=== PATIENT | female | born 2000 | race African-American/Black ===

== ENCOUNTER 2022-07-12 15:17 | Emergency (ER) | payer MEDICAID, SELFPAY ==
--- NOTE | ~2022-07-12 | CT_ITS ---
EXAMINATION: CT HEAD WITHOUT CONTRAST CLINICAL INFORMATION: Multiple syncopal episodes. Headache. COMPARISON: None TECHNIQUE: Contiguous axial imaging was performed from the skull base to vertex without intravenous administration of contrast. This CT examination was performed using dose optimization techniques as appropriate, variously including the following: *Automated exposure control *Adjustment of mA and/or kV according to patient size (this includes techniques or standardized protocols for targeted exams where dose is matched to indication/reason for exam; i.e. extremities or head) *Use of iterative reconstruction technique DLP: 1937 mGy-cm FINDINGS: There is no evidence of acute intracranial hemorrhage or territorial infarction. No abnormal mass effect or midline shift is seen. Mack to white matter differentiation is well preserved. No extra-axial fluid collections are identified. No hydrocephalus. No significant volume loss. There is no abnormal attenuation within the brain parenchyma. No acute osseous or soft tissue abnormality. The mastoid air cells and visualized portions of the paranasal sinuses are well aerated. CT/CT head/brain wo IV con IMPRESSION: No acute intracranial pathology.
--- NOTE | ~2022-07-12 | CT_ITS ---
EXAMINATION: CT ABDOMEN AND PELVIS WITHOUT CONTRAST CLINICAL INFORMATION: Right flank pain COMPARISON: None TECHNIQUE: Multidetector volumetric imaging was performed from the superior aspect of the liver through the pubic symphysis. Sagittal and coronal reformatted images were obtained on the technologist's workstation. This CT examination was performed using dose optimization techniques as appropriate, variously including the following: *Automated exposure control *Adjustment of mA and/or kV according to patient size (this includes techniques or standardized protocols for targeted exams where dose is matched to indication/reason for exam; i.e. extremities or head) *Use of iterative reconstruction technique DLP: 1937 mGy-cm FINDINGS: LUNG BASES: The visualized lung bases are unremarkable. LIVER, GALLBLADDER, AND BILIARY TREE: Liver normal in size, contour and morphology. Diffuse hepatic steatosis. No focal liver lesions. No biliary dilatation. Gallbladder unremarkable. PANCREAS: Unremarkable. SPLEEN: Unremarkable. ADRENAL GLANDS: Unremarkable. KIDNEYS AND URETERS: The kidneys are normal in size, shape, and attenuation. No hydronephrosis, hydroureter, or calculi seen. No perinephric stranding. BLADDER: Unremarkable. GASTROINTESTINAL TRACT: The small and large bowel are unremarkable. The appendix is unremarkable. ABDOMINAL WALL: No significant hernia is appreciated. LYMPH NODES: Normal. VASCULAR: Unremarkable. PELVIC VISCERA: Uterus and ovaries unremarkable. OSSEOUS STRUCTURES: No acute or suspicious osseous abnormalities CT/CT abdomen pelvis wo IV con IMPRESSION: No acute findings within the abdomen or pelvis to explain the patient's symptomatology. Mild hepatic steatosis.
[2022-07-12 16:38] LABS: MANUAL DIFF FLAG NO
[2022-07-12 16:50] LABS: Basophils Percent Auto 0.2 % (0-2); Eosinophils Percent Auto 0.2 % (0-4); Hematocrit 42.9 % (37.0-47.0); Hemoglobin 14.3 g/dl (12.0-16.0); Imm Gran Abs Auto 0.01 X10*3/uL (0.00-0.03); Imm Gran Pct Auto 0.1 % (0.0-0.4); Lymphocytes Absolute Auto 2.5 X10*3/uL (1.2-4.9); Lymphocytes Percent Auto 30.2 % (20-40); Mean Corpuscular HGB Conc 33.3 g/dl (31.0-35.0); Mean Corpuscular Hemoglobin 28.8 pg (27.0-33.0); Mean Corpuscular Volume 86.3 fL (80.0-98.0); Mean Platelet Volume 10.7 fL (9.4-12.3); Monocytes Absolute Auto 0.8 X10*3/uL (0.1-1.2); Monocytes Percent Auto 9.2 % (2-11); Neutrophils Absolute Auto 4.9 x10*3/uL (2.0-8.3); Neutrophils Percent Auto 60.1 % (45-73); Platelet Count 326 X10*3/uL (160-400); Red Blood Count 4.97 X10*6/uL (4.20-5.50); Red Cell Distribution Width 13.4 % (11.0-16.0); White Blood Count 8.1 X10*3/uL (4.8-10.8)
[2022-07-12 17:16] LABS: COVID-19 Test Negative (Negative); IDNOW Serial# 16C4AD1C
[2022-07-12 17:17] LABS: Alanine Aminotransferase 11 U/L (0-31); Albumin Level 4.3 g/dL (3.5-5.0); Alkaline Phosphatase 63 U/L (39-117); Anion Gap 16 (12-20); Aspartate Amino Transferase 12 U/L (5-31); Bilirubin Total 0.8 mg/dL (0.0-1.0); Blood Urea Nitrogen 5 mg/dL (9-16); Calcium 9.2 mg/dL (8.4-10.2); Carbon Dioxide 23 mmol/L (22-29); Chloride 104 mmol/L (96-108); Estimated Glomerular Filt Rate > 60; Glucose Random 96 mg/dL (60-115); Magnesium 2.2 mg/dL (1.6-2.6); Potassium 4.1 mmol/L (3.3-5.1); Sodium 139 mmol/L (135-145); Total Protein 7.9 g/dL (6.5-8.0)
[2022-07-12 17:35] VITALS: BP 166/84; PULSE 75; RESP 18; TEMP 36.8; O2SAT 99; BMI 48.6
[2022-07-12] MEDS: Ondansetron ODT 4 MG TAB.RAPDIS TRANSLINGU (17:44)
[2022-07-12 17:47] LABS: Glucose, Whole Blood 96 mg/dL (60-115)
--- NOTE | 2022-07-12 18:07 | PC.NURSE ---
pt pulled bathroom cord w her family in bathroom. pt family sts pt keeps passing out she feels so sick! pt able to move over to wheelchair w minimal assistance. keeps dropping head backwards and closing eyes. mlp in bathroom for interaction.
--- NOTE | 2022-07-12 18:32 | PC.NURSE ---
pt family continually alerting staff to pt keeps passing out! her lips are purple and she cant feel her arms or legs! . pt responding to painful stimuli to r thumb, immediately responsive and moving arms. pt family also sts pt is having seizure activity. pt is showing no signs of any type of seizure, pt is alert and appropriately responding to verbal questions. pt continues to keep passing out and immediately being woken up by painful stimuli during interaction. pt is able to sit up in wheelchair on own. given verbal reassurance by this rn
[2022-07-12 23:03] LABS: Lipase 15 U/L (8-78)
[2022-07-12 23:09] LABS: HCG Quantitative < 2 mIU/mL
--- NOTE | 2022-07-12 23:09 | ED_ITS ---
HPI - Abdominal Pain General Chief Complaint: Abdominal Pain Stated Complaint: right sided abd pain Time Seen by Provider: 07/12/22 16:25 Source: patient Mode of arrival: ambulatory Limitations: no limitations History of Present Illness HPI narrative: 22-year-old female presents with 4 days of right-sided abdominal pain with nausea, vomiting, dizziness, loss of balance, poor p.o. intake, and multiple episodes of syncope. Patient states that she did have some alcohol on Tuesday night, which she feels is the cause of the nausea and vomiting. She states that she has had diaphoresis, chills, and severe abdominal pain that she feels caused her syncopal episodes. She did report some diarrhea over the past few days, in which she took Imodium to alleviate her symptoms. She does not report a bowel movement today. MD elicited complaint: abdominal pain Onset (ago): day(s) (4) Pain Consistency: intermittent Location: diffuse, RLQ and R flank Severity: severe Pain scale (0-10): 10 Quality: aching and burning Exacerbating factors: vomiting and movement Relieving factors: nothing Context: other (Alcohol use) Associated symptoms: nausea, vomiting, diarrhea, chills and anorexia Treatments prior to arrival: NSAIDs Related Data Allergies Allergy/AdvReac Type Severity Reaction Status Date / Time Unable to Assess Allergy Verified 07/12/22 16:25 Review of Systems Review of Systems Constitutional: No Fever, positive Chills ENT/Mouth: No Ear Pain, No Hoarseness, No sore throat Eyes: No Eye Pain, No Swelling, No Redness, No Foreign Body Cardiovascular: No Chest Pain, No SOB Respiratory: No Cough, No Dyspnea Gastrointestinal: Phos Nausea, positive Vomiting, positive Diarrhea, positive abdominal Pain Genitourinary: No Dysuria, No Hematuria Musculoskeletal: No joint pain, No Myalgias, No Joint Swelling Skin: No Skin lacerations, No rash Neuro: No Weakness, No Numbness, No Paresthesias, No Loss of Consciousness, positive Dizziness, pot Headache Psych: No Anxiety/Panic, No Depression Heme/Lymph: no easy bruising, no Lymphadenopathy Endocrine: No Polyuria, No Polydipsia Yes all other systems are reviewed and are negative PMFSH Past Medical History Attestation statement: The following information was validated with the patient. Source: old records reviewed Social History Social History Advance Directives: No Physical Exam ED Vital Signs: Vital Signs - 24 hr 07/12/22 17:35 07/13/22 00:05 Temperature 98.3 F 99.9 F Pulse Rate 75 68 Respiratory Rate 18 18 Blood Pressure 166/84 H 139/62 Pulse Oximetry 99 97 Oxygen Delivery Method Room Air Room Air BMI result Body Mass Index 48.6 Appearance: Alert. Oriented X3. No acute distress. Eyes: Pupils equal, round and reactive to light. ENT: Pharynx normal. Neck: Normal inspection. Neck supple. CVS: Normal heart rate and rhythm. Pulses normal. Respiratory: No respiratory distress. Breath sounds normal. Abdomen: Soft and severe tenderness on minimal palpation to the right lower quadrant. Skin: Skin warm and dry. Normal skin color. Normal skin turgor. Extremities: No lower extremity edema. Gait well-balanced well coordinated. Neuro: No motor deficit. No sensory deficit. Cranial nerves 2-12 intact Course Course Course Narrative: Patient is waiting room time 07 hours and 52 minutes. 22-year-old female presents for evaluation for right-sided abdominal pain that is severe, and accompanied by nausea, vomiting, dizziness, headache, diarrhea a nd chills. States that started on Tuesday after drinking a large quantity of alcohol for her. She normally does not drink alcohol, she prefers marijuana, but was celebrating a birthday. Patient started vomiting Tuesday evening after drinking, and vomiting and abdominal pain has persisted for the past few days. Patient did have episodes of diarrhea, which was alleviated by Imodium. She denies chest pain pressure, palpitations, shortness breath, shortness of breath on exertion. She has been taking ibuprofen and Tylenol with poor effect. Patient's physical exam is positive for Valentine's and McBurney's, patient is afebrile, appears nontoxic, even unlabored respirations, and speaking in compl ete sentences. Will order CT scan of abdomen pelvis to rule out acute abdomen. Lung sounds are clear to auscultation all lobes, maintaining O2 saturation at 99-100%, with even unlabored respirations, low likelihood of aspiration at this time. CT scan abdomen pelvis indicates hepatic steatosis, no indication of appendicitis, kidney stones, pyelonephritis, acute abdomen. I did discuss alcohol intake, and that this is possibly gastritis and that she should take [id number] Maalox. CT scan of head is negative for acute findings, patient did report headaches, multiple syncopal episodes, and loss of balance. I suggest the patient follow-up with primary care physician, patient verbalized understanding of and agrees to plan of care discharge home. Verbalized understanding of signs and symptoms indicating need for emergent intervention. MDM - Abdominal Pain Differential Diagnosis Differential diagnosis: Likely abdominal pain, acute appendicitis, calculus of kidney, constipation, diverticulitis, gastroenteritis, gastritis and pancreatitis Lab Data Attestation: I reviewed the patient's lab results. Result diagrams: 07/12/22 16:31 07/12/22 16:31 Labs: Lab Results 07/12/22 07/12/22 07/12/22 Range/Units 16:31 16:31 16:31 WBC 8.1 (4.8-10.8) X10*3/uL RBC 4.97 (4.20-5.50) X10*6/uL Hgb 14.3 (12.0-16.0) g/dl Hct 42.9 (37.0-47.0) % MCV 86.3 (80.0-98.0) fL MCH 28.8 (27.0-33.0) pg MCHC 33.3 (31.0-35.0) g/dl RDW 13.4 (11.0-16.0) % Plt Count 326 (160-400) X10*3/uL MPV 10.7 (9.4-12.3) fL Immature Gran % (Auto) 0.1 (0.0-0.4) % Neut % (Auto) 60.1 (45-73) % Lymph % (Auto) 30.2 (20-40) % [place] % (Auto) 9.2 (2-11) % Eos % (Auto) 0.2 (0-4) % Baso % (Auto) 0.2 (0-2) % Lymph # (Auto) 2.5 (1.2-4.9) X10*3/uL [place] # (Auto) 0.8 (0.1-1.2) X10*3/uL Eos # (Auto) 0.0 (0.0-0.4) X10*3/uL Baso # (Auto) 0.0 (0.0-0.2) X10*3/uL Abs Immat Gran (auto) 0.01 (0.00-0.03) X10*3/uL Absolute Neuts (auto) 4.9 (2.0-8.3) x10*3/uL Absolute Nucleated RBC 0.000 (0.0-0.012) X10*3/uL Nucleated RBC % (auto) 0.0 (0.0-0.2) /100WBC Sodium 139 (135-145) mmol/L Potassium 4.1 (3.3-5.1) mmol/L Chloride 104 (96-108) mmol/L Carbon Dioxide 23 (22-29) mmol/L Anion Gap 16 (12-20) BUN 5 L (9-16) mg/dL Creatinine 0.77 (0.5-1.4) mg/dL Estim Creat Clear Calc TNP Estimated GFR > 60 POC Glucose (60-115) mg/dL Random Glucose 96 (60-115) mg/dL Calcium 9.2 (8.4-10.2) mg/dL Magnesium 2.2 (1.6-2.6) mg/dL Total Bilirubin 0.8 (0.0-1.0) mg/dL AST 12 (5-31) U/L ALT 11 (0-31) U/L Alkaline Phosphatase 63 (39-117) U/L Total Protein 7.9 (6.5-8.0) g/dL Albumin 4.3 (3.5-5.0) g/dL Lipase 15 (8-78) U/L Beta HCG, Quant < 2 mIU/mL COVID-19 (RYAN) Negative (Negative) COVID-19 Clin Com See Note 07/12/22 Range/Units 17:42 WBC (4.8-10.8) X10*3/uL RBC (4.20-5.50) X10*6/uL Hgb (12.0-16.0) g/dl Hct (37.0-47.0) % MCV (80.0-98.0) fL MCH (27.0-33.0) pg MCHC (31.0-35.0) g/dl RDW (11.0-16.0) % Plt Count (160-400) X10*3/uL MPV (9.4-12.3) fL Immature Gran % (Auto) (0.0-0.4) % Neut % (Auto) (45-73) % Lymph % (Auto) (20-40) % [place] % (Auto) (2-11) % Eos % (Auto) (0-4) % Baso % (Auto) (0-2) % Lymph # (Auto) (1.2-4.9) X10*3/uL [place] # (Auto) (0.1-1.2) X10*3/uL Eos # (Auto) (0.0-0.4) X10*3/uL Baso # (Auto) (0.0-0.2) X10*3/uL Abs Immat Gran (auto) (0.00-0.03) X10*3/uL Absolute Neuts (auto) (2.0-8.3) x10*3/uL Absolute Nucleated RBC (0.0-0.012) X10*3/uL Nucleated RBC % (auto) (0.0-0.2) /100WBC Sodium (135-145) mmol/L Potassium (3.3-5.1) mmol/L Chloride (96-108) mmol/L Carbon Dioxide (22-29) mmol/L Anion Gap (12-20) BUN (9-16) mg/dL Creatinine (0.5-1.4) mg/dL Estim Creat Clear Calc Estimated GFR POC Glucose 96 (60-115) mg/dL Random Glucose (60-115) mg/dL Calcium (8.4-10.2) mg/dL Magnesium (1.6-2.6) mg/dL Total Bilirubin (0.0-1.0) mg/dL AST (5-31) U/L ALT (0-31) U/L Alkaline Phosphatase (39-117) U/L Total Protein (6.5-8.0) g/dL Albumin (3.5-5.0) g/dL Lipase (8-78) U/L Beta HCG, Quant mIU/mL COVID-19 (RYAN) (Negative) COVID-19 Clin Com Imaging Data CT scan - abdomen: Attestation: I personally reviewed and interpreted this imaging study as follows: Radiologist's impression: FINDINGS: LUNG BASES: The visualized lung bases are unremarkable.? LIVER, GALLBLADDER, AND BILIARY TREE: Liver normal in size, contour and morphology. Diffuse hepatic steatosis. No focal liver lesions. No biliary dilatation. Gallbladder unremarkable.? PANCREAS: Unremarkable.? SPLEEN: Unremarkable.? ADRENAL GLANDS: Unremarkable.? KIDNEYS AND URETERS: The kidneys are normal in size, shape, and attenuation. No hydronephrosis, hydroureter, or calculi seen. No perinephric stranding. ? BLADDER: Unremarkable.? GASTROINTESTINAL TRACT: The small and large bowel are unremarkable. The appendix is unremarkable.? ABDOMINAL WALL: No significant hernia is appreciated.? LYMPH NODES: Normal. VASCULAR: Unremarkable. PELVIC VISCERA: Uterus and ovaries unremarkable.? OSSEOUS STRUCTURES: No acute or suspicious osseous abnormalities CT/CT abdomen pelvis wo IV con IMPRESSION: No acute findings within the abdomen or pelvis to explain the patient's symptomatology. Mild hepatic steatosis. CT scan - head: Attestation: I personally reviewed and interpreted this imaging study as follows: Radiologist's impression: FINDINGS: There is no evidence of acute intracranial hemorrhage or territorial infarction. No abnormal mass effect or midline shift is seen. Mack to white matter differentiation is well preserved. No extra-axial fluid collections are identified. No hydrocephalus. No significant volume loss. There is no abnormal attenuation within the brain parenchyma. No acute osseous or soft tissue abnormality. The mastoid air cells and visualized portions of the paranasal sinuses are well aerated. ? CT/CT head/brain wo IV con IMPRESSION: No acute intracranial pathology. Discharge Plan Discharge Clinical Impression: Abdominal pain, Gastroenteritis, Syncope Patient Disposition: Home, Self-Care Instructions: Syncope (ED), Gastroenteritis (ED), Abdominal Pain (ED) Additional Instructions: You were evaluated for abdominal pain, nausea, vomiting, and syncopal episodes. CT scan of abdomen and pelvis are negative for acute findings but indicates enlarged liver. CT scan of the head is negative. Your lab values are within normal limits. Your symptoms are consistent with gastritis or gastroenteritis. Please consider taking Maalox [id number] as directed. Drink plenty of fluids. Follow-up with primary care provider as needed. Return to the emergency department for any new, concerning, worsening symptoms. Stand Alone Forms: Work/School Release Interventions: ED Discharge Assessment Last Done: 07/13/22 01:41
[2022-07-13 00:05] VITALS: BP 139/62; PULSE 68; RESP 18; TEMP 37.7; O2SAT 97
[2022-07-13] MEDS: Morphine Sulfate 4 MG/ML CARTRIDGE IVPUSH (00:08)
[2022-07-13] MEDS: 0.9 % Sodium Chloride 1,000 ML 999 ML IVCONT (00:08)
== END 2022-07-13 01:42 | disposition home or self-care (01) ==
PROVIDERS: Physician Assistant Medical; Emergency Provider Student in an Organized Health Care Education/Training Program; PCP Family Medicine
DX: R55 Syncope and collapse (principal); K52.9 Noninfective gastroenteritis and colitis, unspecified; R10.9 Unspecified abdominal pain; Z20.822 Contact with and (suspected) exposure to COVID-19
CPT/HCPCS: 70450; 74176; 80053; 82947; 83690; 83735; 84702; 85025; 87635; 96374; 99284; J2270

== ENCOUNTER 2023-08-11 11:10 | Outpatient (REF) | payer MEDICAID, SELFPAY ==
[2023-08-11 13:05] LABS: MANUAL DIFF FLAG NO
[2023-08-11 13:10] LABS: Basophils Percent Auto 0.6 % (0-2); Eosinophils Absolute Auto 0.1 X10*3/uL (0.0-0.4); Eosinophils Percent Auto 1.7 % (0-4); Hematocrit 40.9 % (37.0-47.0); Hemoglobin 13.4 g/dl (12.0-16.0); Imm Gran Abs Auto 0.01 X10*3/uL (0.00-0.03); Imm Gran Pct Auto 0.2 % (0.0-0.4); Lymphocytes Absolute Auto 2.5 X10*3/uL (1.2-4.9); Lymphocytes Percent Auto 38.7 % (20-40); Mean Corpuscular HGB Conc 32.8 g/dl (31.0-35.0); Mean Corpuscular Hemoglobin 29.3 pg (27.0-33.0); Mean Corpuscular Volume 89.3 fL (80.0-98.0); Mean Platelet Volume 11.3 fL (9.4-12.3); Monocytes Absolute Auto 0.6 X10*3/uL (0.1-1.2); Monocytes Percent Auto 8.9 % (2-11); Neutrophils Absolute Auto 3.3 x10*3/uL (2.0-8.3); Neutrophils Percent Auto 49.9 % (45-73); Platelet Count 261 X10*3/uL (160-400); Red Blood Count 4.58 X10*6/uL (4.20-5.50); White Blood Count 6.5 X10*3/uL (4.8-10.8)
[2023-08-11 13:26] LABS: Alanine Aminotransferase 19 U/L (0-31); Albumin Level 3.6 g/dL (3.5-5.0); Alkaline Phosphatase 59 U/L (39-117); Anion Gap 10 (12-20); Aspartate Amino Transferase 17 U/L (5-31); Bilirubin Direct 0.3 mg/dL (0.0-0.5); Bilirubin Total 0.6 mg/dL (0.0-1.0); Blood Urea Nitrogen 7 mg/dL (9-16); Calcium 8.4 mg/dL (8.4-10.2); Carbon Dioxide 26 mmol/L (22-29); Chloride 106 mmol/L (96-108); Cholesterol 119 mg/dL (<200); Estimated Average Glucose 100 mg/dL; Estimated Glomerular Filt Rate > 60; Glucose Random 85 mg/dL (60-115); HDL Cholesterol 51 mg/dL (>40); Hemoglobin A1c % 5.1 % (<6.0); LDL Cholesterol Calculated 55 mg/dL (<100); Potassium 4.3 mmol/L (3.3-5.1); Sodium 138 mmol/L (135-145); Triglycerides 65 mg/dL (<150)
[2023-08-11 16:34] LABS: CT PCR NOT DETECTED (Not Detect.); NG PCR NOT DETECTED (Not Detect.)
[2023-08-12 03:51] LABS: HIV AB/AG Nonreactive (Nonreactive); HIV Num 1 0.04 S/CO (0.00-0.99); ~HepC Num1 0.06 S/CO (0.00-0.79); ~Hepatitis C Antibody Nonreactive (Nonreactive)
[2023-08-16 00:55] LABS: VITAMIN D (1,25 OH) D3 66 pg/mL; Vit D (1,25-Dihydroxy) Total 66 pg/mL (18-72); Vitamin D (1,25 OH) D2 <8 pg/mL
== END 2023-08-11 11:11 | disposition home or self-care (01) ==
LOC: HO.HHCL 11:10
PROVIDERS: Visit Provider Family Medicine
DX: Z11.4 Encounter for screening for human immunodeficiency virus [HIV] (principal); Z11.3 Encounter for screening for infections with a predominantly sexual mode of transmission; E28.2 Polycystic ovarian syndrome; E16.1 Other hypoglycemia; R10.9 Unspecified abdominal pain; E55.9 Vitamin D deficiency, unspecified
CPT/HCPCS: 0353U; 80048; 80061; 80076; 82652; 83036; 85025; 86803; 87389

== ENCOUNTER 2024-07-12 09:45 | Outpatient (RCR) | payer OTHER, SELFPAY ==
[2024-07-12 09:52] VITALS: BP 129/80; PULSE 61; TEMP 36.8
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
--- NOTE | 2024-07-12 14:57 | HO.PHP ---
Client's case has been opened and reviewed in team.
--- NOTE | 2024-07-12 18:30 | P.HPPSP_ITS ---
HPI Date of Service: 07/12/24 Chief Complaint: MDD Sources of Information: patient interviewed, chart reviewed and crisis/core team assessment reviewed HPI Narrative: Patient is a 24 yo nonbinary patient (who declined to offer any preference for pronouns) with history of depression, anxiety who was referred by [facility]. I recently had a suicide attempt... I was on the phone one night and had a bad argument with my girlfriend. I (impulsively) grabbed a knife and held it to my throat . They ultimately did relinquish the knife and reached out for help and did not harm themselves. They reports nightly cannabis use but denies any other substance use that day. They are not currently on medications and only recently started with their current therapist. Today mood is good, I was anxious this morning says they typically have more bad day than good days in any given month. Presently they report their mood is calmer. Groups have so been good I'm trying to open up Cognitive anxiety > somatic 03/26. I'm an overthinker . Sleep disruption, delayed onset. Goald for partial program: Be more productive, Be more motivated Past Psychiatric History: Denies IPLOC, PHP, withdrawal management or substance addiction treatment They report this as their first suicidal attempt and denies any history of self Denies any hx of history EDB Denies aggression, anger or issues with impulse control No hx of branden or psychosis Denies any pertinent developmental history, ADHD or LD Therapist - been working for 4 days thus day No psych proivder CURRENT MEDICATIONS: loratadine 10 mg qd albuterol inhaler [facility] Medical History (Updated 07/12/24 @ 21:28 by Trini Montano MD) PCOS (polycystic ovarian syndrome) Asthma Narrative: ASthma PCOS Eczema Weight loss (unintentional) of 13 lbs since past 6 months Denies surgical hx Denies seizures Denies concussions/TBI ALL: NKDA Social History: Unmarried, partnered Lives alone Currently unemployed, mom is a primary support Substance History: Cannabis use for many years, mostly limited to night time for sleep Alcohol use rare No illicit drug use Denies nicotine Diagnostics Vital Signs (24Hr): Vital Signs - 24 hr 07/12/24 09:52 Temperature 98.2 F Pulse Rate 61 Blood Pressure 129/80 BMI result Body Mass Index 0.5 Meds/Allergies Meds Home Medications ?Medication ?Instructions ?Recorded ?Confirmed ?Type albuterol sulfate 2.5 mg/3 mL 2.5 mg inhalation Q6H sob 07/12/24 07/12/24 History (0.083 %) solution for nebulization albuterol sulfate 90 mcg/actuation 2 puff inhalation Q4H PRN sob 07/12/24 07/12/24 History aerosol inhaler (Ventolin HFA) loratadine 10 mg capsule 10 mg PO DAILY PRN allergy sxs 07/12/24 07/12/24 History Allergies Allergies Allergy/AdvReac Type Severity Reaction Status Date / Time No Known Allergies Allergy Verified 07/12/24 09:48 Mental Status Exam Mental Status Exam Narrative: Calm, cooperative, alert, oriented. Mood anxious, depressed, affect constricted. Speech normal. No evidence of thought disorder. Thought content relevant to stressors, denies hopelessness or SI. Denies perceptual disturbance and does not appear to be internally preoccupied. Insight/judgment fair to good. Assessment & Plan Assessment & Plan (1) MDD (major depressive disorder), recurrent episode, moderate: Status: Acute Code(s): F33.1 - Major depressive disorder, recurrent, moderate (2) YONATHAN (generalized anxiety disorder): Status: Acute Code(s): F41.1 - Generalized anxiety disorder (3) Cannabis dependence with cannabis-induced disorder: Status: Acute Code(s): F12.29 - Cannabis dependence with unspecified cannabis-induced disorder (4) Acute stress reaction causing mixed disturbance of emotion and conduct: Status: Acute Code(s): F43.0 - Acute stress reaction Plan Admit to [facility] VS reviewed: darek, BP 129/80;?61 bpm start escitalpram 2.5 mg qd for 2-4 days then increase to 5 mg tablet continue other regular medications? Routine lab work ordered EKG, routine for baseline QTc for medication considerations UDS as indicated [facility] reviewed Continue to monitor as per protocol Patient educated on: diagnosis, medication risk/benefits and substance abuse Informed Consent: understands Reason for continued partial hosp. stay Substantial Risk for: inability to function, rapid decompensation and med/psych decompensation Certification I certify that partial hospital treatment is medically necessary due to the symptoms and problems resulting from the patient's mental illness and the failure to treat the patient at the partial hospital level of care would likely result in the patient requiring inpatient psychiatric care which could not be prevented at a less intensive level of care. Time Spent With Patient Time: Total time managing care of this patient today _60___ minutes.
--- NOTE | 2024-07-13 07:12 | HO.PHP ---
Martine is not scheduled today, July 13, 2024, due to having an appointment. Martine reported no safety concerns and will be in attendance to program on Tuesday.
== END 2024-07-12 23:59 | disposition home or self-care (01) ==
LOC: HO.PHPA 09:45
PROVIDERS: Visit Provider Psychiatry & Neurology Psychiatry
DX: F33.1 Major depressive disorder, recurrent, moderate (principal); F41.1 Generalized anxiety disorder; F12.29 Cannabis dependence with unspecified cannabis-induced disorder; F43.0 Acute stress reaction
CPT/HCPCS: 90791; 90853

== ENCOUNTER → 2024-07-12 09:45 | Outpatient (BNV) | payer OTHER, SELFPAY | PROVIDERS: Visit Provider Psychiatry & Neurology Psychiatry | DX: F33.1 Major depressive disorder, recurrent, moderate (principal); F12.29 Cannabis dependence with unspecified cannabis-induced disorder; F41.1 Generalized anxiety disorder; F43.0 Acute stress reaction | CPT/HCPCS: 90837 ==

== ENCOUNTER 2024-08-15 09:46 | Outpatient (REF) | payer OTHER, SELFPAY ==
[2024-08-15 12:22] LABS: Estimated Average Glucose 111 mg/dL; Hemoglobin A1c % 5.5 % (<6.0)
[2024-08-15 13:02] LABS: Alanine Aminotransferase 25 U/L (0-31); Albumin Level 3.8 g/dL (3.5-5.0); Alkaline Phosphatase 60 U/L (39-117); Anion Gap 12 (12-20); Aspartate Amino Transferase 36 U/L (5-31); Bilirubin Direct 0.2 mg/dL (0.0-0.5); Bilirubin Total 0.6 mg/dL (0.0-1.0); Blood Urea Nitrogen 14 mg/dL (9-16); Carbon Dioxide 24 mmol/L (22-29); Chloride 107 mmol/L (96-108); Cholesterol 132 mg/dL (<200); Estimated Glomerular Filt Rate > 60; Glucose Random 98 mg/dL (60-115); HDL Cholesterol 42 mg/dL (>40); LDL Cholesterol Calculated 73 mg/dL (<100); Potassium 3.9 mmol/L (3.3-5.1); Sodium 139 mmol/L (135-145); Total Protein 7.4 g/dL (6.5-8.0); Triglycerides 86 mg/dL (<150)
[2024-08-15 13:27] LABS: TSH reflex Free T4 1.15 uIU/mL (0.32-4.0)
[2024-08-15 14:32] LABS: CT PCR NOT DETECTED (Not Detect.); NG PCR NOT DETECTED (Not Detect.)
[2024-08-16 08:18] LABS: HIV AB/AG Nonreactive (Nonreactive); HIV Num 1 0.07 S/CO (0.00-0.99)
== END 2024-08-15 09:47 | disposition home or self-care (01) ==
LOC: HO.HHCL 09:46
PROVIDERS: Visit Provider Family Medicine
DX: E28.2 Polycystic ovarian syndrome (principal); Z11.3 Encounter for screening for infections with a predominantly sexual mode of transmission
CPT/HCPCS: 36415; 80048; 80061; 80076; 83036; 84443; 87389; 87491; 87591

== ENCOUNTER 2024-11-06 13:55 | Outpatient (REF) | payer OTHER, SELFPAY ==
--- OUTSIDE RECORDS SUMMARY | 2024-11-06 17:48 | XMS_ITS | Encounter Summary ---
Author Organization [employer] Address [address] [facility] 7 [place] [address] Care Team Providers Care Home Appliances Mechanic Name Role Phone Dulce Turner MD Primary Care Provider [phone]- [phone] Deirdre Mari Unavailable [phone] Reason for Visit * Reason Onset Date Comments Prior Authorization 10/22/2024 Encounter Details Date Type Department Care Team (Late st Contact Info) Description 10/22/2024 Telephone [facility] [address] [place], [place] [phone] Dulce Turner MD [address] [place], [place] [phone] Prior Authorization Social History Tobacco Use Types Packs/Day Years Used Date Smoking Tobacco: Never Passive Smoke Exposure: Never Smokeless Tobacco: Never Alcohol Use Standard Drinks/Week Comments Not Currently 0 (1 standard drink = 0.6 oz pur e alcohol) oca Depression Answer Date Recorded Patient Health Questionnaire-9 Score 12 08/22/2024 Patient Health Questionnaire-9 Score 12 08/22/2024 Last PHQ-9: Questionnaire Data Not on file 1 10/22/2023 Housing Stability Answer Date Recorded What is your housing situation today? I have fred pappas 08/02/[address] you li ve. Do you have problems with any of the following? None of the above 08/02/2024 Food Insecurity Answer Date Recorded Within the past 12 months, y ou worried that your food would run out before you got money to buy more: Never True 08/22/2024 Within the past 12 months,th e food you bought just didn't last and you didn't have enough money to get more: Never True 03/2024 Transportation Answer Date Recorded In the past 12 months, has l ack of transportation kept you from medical appts, meetings, work or from getting things needed for daily living? No 08/22/2024 Utilities Answer Date Recorded In the past 12 months, has t he electric, gas, oil or water company threatened to shut off services in your home? No 08/02/2024 Depression Answer Date Recorded Patient Health Questionnaire-2 Score 1 08/22/2024 Internet Access Answer Date Recorded Internet Access Q1 Yes 08/02/2024 Internet Access Q2 Not on file 08/02/2024 Comments Unknown Sex and Gender Information Value Date Recorded Sex Assigned at Female 08/16/2022 10:38 AM EDT Legal Sex Female 10:38 AM EDT Gender Identity Female 08/16/2022 10:38 AM EDT Sexual Orientation Lesbian or Manzano 08/16/2022 10 :38 AM EDT documented as of this encounter Miscellaneous Notes * Telephone Encounter - Michoacano Che RN - 10/25/2024 3:52 PM EST DME for Zepbound signed and faxed to [facility]. Confirmation received and sent to scan. If patient calls to check status on above, please advise them to contact [facility] at [phone]. * Telephone Encounter - Leyda Meneses - 10/23/2024 3:18 PM EST PA req form generated and sent to provider for review and signature via [employer]. * Telephone Encounter - Dulce Turner MD - 10/22/2024 10:55 AM EST Please start PA for zep bound 2.5 weekly. Infro should be in chart note from today 10/22/24. Thank you. documented in this encounter Plan of Treatment Upcoming Encounters Date Type Department Care Team (Late st Contact Info) Description 12/26/2024 11:15 AM EDT Office Visit [facility] [address] [place] [address] Dulce Turner MD [address] [place] [address] documented as of this encounter Visit Diagnoses Not on filedocumented in this encounter Additional Health Concerns Assessment Noted Time PHQ-9 Depression Total Score: 12 024 4:40 PM EST documented as of this encounter Care Teams Home Appliances Mechanic Relationship Specialty Start Date End Date Dulce Turner MD [address] [place] [address] PCP - General Family Medicine 10/29/21 Deirdre Mari [address] [facility] [address] [place] [address] Gynecology 10/08/24 documented as of this encounter
--- OUTSIDE RECORDS SUMMARY | 2024-11-06 17:48 | XMS_ITS | Encounter Summary ---
Author Organization [employer] Address 75 [facility] 7t [place] [address] Care Team Providers Care Inter Com Installer Name Role Phone Dulce Turner MD Primary Care Provider [phone]- [phone] Deirdre Mari Unavailable Encounter Details Date Type Department Care Team (Late st Contact Info) Description 04/06/2023 Orders Only [facility] [address] [place], [place] [phone] Dulce Turner MD [address] [place], [place] [phone] Social History Tobacco Use Types Packs/Day Years Used Date Smoking Tobacco: Never Passive Smoke Exposure: Never Smokeless Tobacco: Never Depression Answer Date Recorded Patient Health Questionnaire-9 Score 23 03/16/2023 Depression Answer Date Recorded Patient Health Questionnaire-2 Score 6 03/16/2023 Comments Unknown Sex and Gender Information Value Date Recorded Sex Assigned at Female 08/16/2022 10:38 AM EDT Legal Sex Female 10:38 AM EDT Gender Identity Female 08/16/2022 10:38 AM EDT Sexual Orientation Lesbian or Manzano 08/16/2022 10 :38 AM EDT COVID-19 Exposure Response Date Recorded In the last 10 days, have yo u been in contact with someone who was confirmed or suspected to have Coronavirus/COVID-19? No / Unsure 03/23/2023 8:31 AM EDT documented as of this encounter Plan of Treatment Upcoming Encounters Date Type Department Care Team (Late st Contact Info) Description 12/26/2024 11:15 AM EDT Office Visit [facility] [address] [place] [address] Dulce Turner MD [address] [place] [address] documented as of this encounter Visit Diagnoses Not on filedocumented in this encounter Additional Health Concerns Assessment Noted Time PHQ-9 Depression Total Score: 23 023 10:58 AM EDT documented as of this encounter Care Teams Inter Com Installer Relationship Specialty Start Date End Date Dulce Turner MD [address] [place] [address] PCP - General Family Medicine 10/29/21 Deirdre Mari [address] Gynecology 10/08/24 documented as of this encounter
--- OUTSIDE RECORDS SUMMARY | 2024-11-06 17:48 | XMS_ITS | Encounter Summary ---
Author Organization [email or web address] Address [address] [facility] [address] 7[address] [place] [address] Care Team Providers Care Franchise Field Consultant Name Role Phone Dulce Turner MD Primary Care Provider [phone]- [phone] Deirdre Mari Unavailable [phone] Encounter Details Date Type Department Care Team (Latest Contact Info) Description 11/06/2024 Travel Social History Tobacco Use Types Packs/Day Years [...] Description 12/26/2024 11:15 AM EDT Office Visit [facility] [address] [place] [address] Dulce Turner MD [address] [place] [address] documented as of this encounter Visit Diagnoses Not on filedocumented in this encounter Additional Health Concerns Assessment Noted Time PHQ-9 Depression Total Score: 12 024 4:40 PM EST documented as of this encounter Care Teams Franchise Field Consultant Relationship Specialty Start Date End Date Dulce Turner MD [address] [place] [address] PCP - General Family Medicine 10/29/21 Deirdre Mari [facility] [address] Gynecology 10/08/24 documented as of this encounter
--- OUTSIDE RECORDS SUMMARY | 2024-11-06 17:48 | XMS_ITS | Encounter Summary ---
Author Organization [employer] Address 75 [facility] 7 [place] [address] Care Team Providers Care Tin Flipper Name Role Phone Dulce Turner MD Primary Care Provider [phone]- [phone] Deirdre Mari Unavailable [phone] Reason for Visit * Reason Onset Date Comments Prior Authorization 11/01/2024 Zepbound Encounter Details Date Type Department Care Team (Late st Contact Info) Description 11/01/2024 Telephone [facility] [address] [place] [address] Dulce Turner MD [address] [place], [place] [phone] Prior Authorization (Zepbound) Social History Tobacco Use Types Packs/Day Years [...] encounter Miscellaneous Notes * Telephone Encounter - Leyda Meneses - 11/01/2024 3:12 PM EST PA approval received and in media. Workers Compensation Claims Analyst called [facility] and confirmed Rx was run successfully; Medication not in stock/pharmacy stated will be ordered for will be ready to forklift picker tomorrow. Writercalled pt and lvm informing of above. Pt advised to call [facility] or [facility] if any questions. documented in this encounter Plan of Treatment Upcoming Encounters Date Type Department Care Team (Late st Contact Info) Description 12/26/2024 11:15 AM EDT Office Visit [facility] [address] [place] [address] Dulce Turner MD [address] [place] [address] documented as of this encounter Visit Diagnoses Not on filedocumented in this encounter Additional Health Concerns Assessment Noted Time PHQ-9 Depression Total Score: 12 024 4:40 PM EST documented as of this encounter Care Teams Tin Flipper Relationship Specialty Start Date End Date Dulce Turner MD [address] [place] [address] PCP - General Family Medicine 10/29/21 Deirdre Mari [address] Gynecology 10/08/24 documented as of this encounter
--- OUTSIDE RECORDS SUMMARY | 2024-11-06 17:48 | XMS_ITS | Encounter Summary ---
Author Organization [employer] Address 75 [facility] 7t [place] [address] Care Team Providers Care Front Office Medical Assistant Name Role Phone Dulce Turner MD Primary Care Provider [phone]- [phone] Deirdre Mari Unavailable [phone] Encounter Details Date Type Department Care Team (Late st Contact Info) Description 10/22/2024 10:30 AM EST Office Visit [facility] [address] [place] [address] Dulce Turner MD [address] [place] [address] Other specified health status (Primary Dx); Mild persistent asthma without complication; Severe episode of recurrent major depressive disorder, without psychotic features (CMS/HCC); Morbid obesity (CMS/HCC); Dietary counseling; Exercise counseling; Class 3 severe obesity due to excess calories with serious comorbidity and body mass index (BMI) of 50.0 to 59.9 in adult (CMS/HCC); Transaminitis; Eczema, unspecified type Social History Tobacco Use Types Packs/Day Years [...] AM EDT documented as of this encounter Last Filed Vital Signs Vital Sign Reading Time Taken Comments Blood Pressure 133/80 10/22/2024 10:41 AM EST Pulse 100 10/22/2024 10:41 AM EST Temperature 36.5 ??C (97.7 ??F) 10/22/2024 10:[address] Respiratory Rate 20 10/22/2024 10:41 AM EST Oxygen Saturation 99% 10/22/2024 10:41 AM EST Inhaled Oxygen Concentration - - Weight 154 kg (339 lb) 10/22/2024 10:41 AM EST Height 167.6 cm (5' 6 ) 10/22/2024 10:41 AM EST Body Mass Index 54.72 10/22/2024 10:41 AM EST documented in this encounter Progress Notes * Dulce Turner MD - 10/22/2024 10:30 AM EST Subjective Patient ID: Mykilah M Welfare is a 24 y.o. female with PMHx of PCOS, major depressive disorder and asthma who presents for a Follow Up. Pt has not started on Tirzepatide because she wasn't sure if it had gone through the insurance. Spoke with pharmacy today and they did not have script. Pt reports forgetting to take her pills and hasbeen getting her periods. Maternal grandfather has diabetes. Pt reports continuing with diet and exercise. Reports walking regularly. Last seen on 08/22/2024 in [facility] for Encounter for immunization. Discussed recent labs which were largely unremarkable. Pt expressed desire to lose weight and wants to lower to 200 pounds from 329. While pt feels comfortable in her current weight, would like to feel more energized. Pt reports walking often and drinking a lot of sugar free drinks, but drinks mostly water. Due to feeling thirsty often. Reports feeling better when describing her depression. Still has some anxiety around people she doesn't know. She reports not being able to sleep. Believes it has to do with marijuana use. Pt denies fatigue during the day, doesn't feel the need to take naps, or no apneic episodes. Review of Systems Objective Visit Vitals BP 133/80 (BP Location: Left arm, Patient Position: Sitting, BP Cuff Size: Large adult) Pulse 100 Temp 97.7 ??F (36.5 ??C) (Temporal) Resp 20 Body mass index is 54.72 kg/m??. Physical Exam Problem List Items Addressed This Visit Other specified health status - Primary Mild persistent asthma without complication -followed by filling and packing supervisor Dr. Fermin, last note 2021 Denies regular use. Well-controlled. Denies refills 08/02/24 - Prescribed albuterol 108 (90 Base) MCG/ACT inhaler 10/22/24 Relevant Medications albuterol 108 (90 Base) MCG/ACT inhaler Severe episode of recurrent major depressive disorder, without psychotic features (CMS/HCC) Follows with therapist at [facility]. Will be established with psychiatrist soon. -is prescribed Escitalopram(Lexapro) once, daily that she uses PRN. 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)pt is a candidate for glucagon-like peptide-1s (GLP-1) to assist with weight loss -patient counseled this medication is to be used in combination with reduced calorie diet and increased physical activity -Recommends decreasing carbohydrate intake and decreasing sugary drinks -Start Zepbound (tirzepatide) weight loss injections 08/22/2024 Baseline weight: 189 08/22/24 -given BMI >30kg/m2 (32.44 on 08/23/24) pt is a candidate for glucagon-like peptide-1s (GLP-1) toassist with weight loss -patient counseled this medication is to be used in combination with reduced calorie diet and increased physical activity -Contraindication to phentermine: history anxiety/agitated state, cardiac arrhythmia, palpitations -she has demonstrated > 1 year of lifestyle changes with diet and exercise and unable to loose more weight -Zepbound (tirzepatide) 2.5 mg once a week for a week started 10/22/24 -For Zepbound (tirzepatide) Start 2.5mg subcutaneously q week x 1 month, then 5mg subcutaneously q week. May increased by 2.5mgq 4 weeks with max 15mg/wk - Baseline Weight: 339 lbs 10/22/24 Relevant Medications Tirzepatide-Weight Management (Zepbound) 2.5 MG/0.5ML solution auto-injector Transaminitis Other Visit Diagnoses Dietary counseling Exercise counseling Class 3 severe obesity due to excess calories with serious comorbidity and body mass index (BMI) of50.0 to 59.9 in adult ([facility]) Eczema, unspecified type Relevant Medications triamcinolone (Kenalog) 0.1 % cream Follow up in about 2 months (around 12/20/2024) for Follow Up For Weight Check (Zepbound Started). I, Annette Chou, am serving as a scribe to document services personally performed by Dr. Dulce Turner, based on the patient's response to questions by provider and providers statements to me. documented in this encounter Miscellaneous Notes * Assessment & Plan Note - Annette Chou MA - 10/22/2024 11:04 AM EST Associated Problem(s): Mild persistent asthma without complication -followed by filling and packing supervisor Dr. Fermin, last note 2021 Denies regular use. Well-controlled. Denies refills 08/02/24 - Prescribed albuterol 108 (90 Base) MCG/ACT inhaler 10/22/24 * Assessment & Plan Note - Annette Chou MA - 10/22/2024 11:02 AM EST Associated Problem(s): Severe episode of recurrent major depressive disorder, without psychotic features (CMS/HCC) Follows with therapist at [facility]. Will be established with psychiatrist soon. -is prescribed Escitalopram(Lexapro) once, daily that she uses PRN. 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)pt is a candidate for glucagon-like peptide-1s (GLP-1) to assist with weight loss -patient counseled this medication is to be used in combination with reduced calorie diet and increased physical activity -Recommends decreasing carbohydrate intake and decreasing sugary drinks -Start Zepbound (tirzepatide) weight loss injections 08/22/2024 Baseline weight: 189 08/22/24 -given BMI >30kg/m2 (32.44 on 08/23/24) pt is a candidate for glucagon-like peptide-1s (GLP-1) toassist with weight loss -patient counseled this medication is to be used in combination with reduced calorie diet and increased physical activity -Contraindication to phentermine: history anxiety/agitated state, cardiac arrhythmia, palpitations -she has demonstrated > 1 year of lifestyle changes with diet and exercise and unable to loose more weight -Zepbound (tirzepatide) 2.5 mg once a week for a week started 10/22/24 -For Zepbound (tirzepatide) Start 2.5mg subcutaneously q week x 1 month, then 5mg subcutaneously q week. May increased by 2.5mgq 4 weeks with max 15mg/wk - Baseline Weight: 339 lbs 10/22/24 documented in this encounter Plan of Treatment Upcoming Encounters Date Type Department Care Team (Late st Contact Info) Description 12/26/2024 11:15 AM EDT Office Visit [facility] [address] [place] [address] Dulce Turner MD [address] [place] [address] documented as of this encounter Visit Diagnoses Diagnosis Other specified health status- Primary Mild persistent asthma without complication Severe episode of recurrent major depressive disorder, without psychotic features (CMS/HCC) Morbid obesity (CMS/HCC) Morbid obesity Dietary counseling Dietary surveillance and counseling Exercise counseling Class 3 severe obesity due to excess calories with serious comorbidity and body mass index (BMI) of 50.0 to 59.9 in adult (CMS/HCC) Transaminitis Nonspecific elevation of levels of transaminase or lactic acid dehydrogenase (LDH) Eczema, unspecified type documented in this encounter Additional Health Concerns Assessment Noted Time PHQ-9 Depression Total Score: 12 024 4:40 PM EST documented as of this encounter Care Teams Front Office Medical Assistant Relationship Specialty Start Date End Date Dulce Turner MD [address] [place] [address] PCP - General Family Medicine 10/29/21 Deirdre Mari [address] Gynecology 10/08/24 documented as of this encounter
--- OUTSIDE RECORDS SUMMARY | 2024-11-06 17:48 | XMS_ITS | Encounter Summary ---
Author Organization [email or web address] Address [address] [facility] [address] [place] [address] Care Team Providers Care Magnetic Testing Technician Name Role Phone Dulce Turner MD Primary Care Provider [phone]- [phone] Deirdre Mari Unavailable [phone] Reason for Visit * Reason Onset Date Comments December recall 10/25/2024 Encounter Details Date Type Department Care Team (Late st Contact Info) Description 10/25/2024 Telephone [facility] [address] [place] [address] Ty T[place], [place] December recall Social History Tobacco Use Types Packs/Day Years [...] encounter Miscellaneous Notes * Telephone Encounter - Claire Crawford MA - 10/25/2024 2:57 PM EST T/C to pt to schedule a recall f/u Ozempic and Topamax . PT agreed to come in on 12/26/24 at 11:15am. documented in this encounter Plan of Treatment Upcoming Encounters Date Type Department Care Team (Late st Contact Info) Description 12/26/2024 11:15 AM EDT Office Visit [facility] [address] [place] [address] Dulce Turner MD [address] [place] [address] documented as of this encounter Visit Diagnoses Not on filedocumented in this encounter Additional Health Concerns Assessment Noted Time PHQ-9 Depression Total Score: 12 024 4:40 PM EST documented as of this encounter Care Teams Magnetic Testing Technician Relationship Specialty Start Date End Date Dulce Turner MD [address] [place] [address] PCP - General Family Medicine 10/29/21 Deirdre Mari [address] Gynecology 10/08/24 documented as of this encounter
--- OUTSIDE RECORDS SUMMARY | 2024-11-06 17:48 | XMS_ITS | Encounter Summary ---
Author Organization [employer] Address [address] [place] [address] 7 [place] [address] Care Team Providers Care Operation Specialist Name Role Phone Dulce Turner MD Primary Care Provider [phone] Deirdre Mari Unavailable [phone] Reason for Referral * Consultation (Routine) - Pending Review Specialty Diagnoses / Procedures Referred By Lorene boggs Referred To Contact Sleep Medicine Diagnoses Insomnia, unspecified type Daytime somnolence Dulce Turner MD [address] [place] [phone] Phone: tel: fax: Referral ID Status Reason Start Date Expiration Date Visits Requested Visits Authorized [id number] Pending Review Specialty Services Required 11/06/2024 11/06/2025 1 1 Reason for Visit * Reason Comments Cough Encounter Details Date Type Department Care Team (Late st Contact Info) Description 11/06/2024 1:40 PM EST Office Visit [facility] [address] [place] [address] [phone] Dulce Turner MD [address] [place] [address] [phone] Viral upper respiratory infection (Primary Dx); Insomnia, unspecified type; Cough in adult patient; Daytime somnolence Social History Tobacco Use Types Packs/Day Years [...] Sign Reading Time Taken Comments Blood Pressure 130/80 11/06/2024 1:52 PM EST Pulse 79 11/06/2024 1:33 PM EST Temperature 36.7 ??C (98.1 ??F) 11/06/2024 1:33 PM ES T Respiratory Rate 18 11/06/2024 1:33 PM EST Oxygen Saturation 99% 11/06/2024 1:33 PM EST Inhaled Oxygen Concentration - - Weight 156 kg (344 lb) 11/06/2024 1:33 PM EST Height - - Body Mass Index 55.52 10/22/2024 10:41 AM EST documented in this encounter Progress Notes * Trisha Daniels - 11/06/2024 1:40 PM EST Subjective History was provided by the patient. Martine Kumari is a 24 y.o. female who presents for evaluation of symptoms of a URI. Symptoms include cough and myalgia. Onset of symptoms was a few weeks ago, unchanged since that time. Associated negative symptoms include fever, nausea, and vomiting. Evaluation to date: seen on 10/30/24 for flu-like symptoms x2 weeks . Treatment to date: albuterol, ibuprofen and prednisone . Pt says she just never got better and symptoms persisted through today. Was not prescribed abx. She notes she has been persistently coughing. Denies post tussive emesis. Pt reports she was seen at urgent care yesterday but only got a work note. Denies any medication prescribed at urgent care. Pt also reports she has been having trouble falling asleep and staying asleep. Denies any snoring or episodes of apnea during sleep. She reports she is tired occasionally during the day. Was going tohave a sleep study in the past but fell through. Objective Vitals: 11/06/24 1333 11/06/24 1352 BP: 130/80 BP Location: Left arm Patient Position: Sitting BP Cuff Size: Adult Pulse: 79 Resp: 18 Temp: 98.1 ??F (36.7 ??C) TempSrc: Temporal SpO2: 99% Weight: 344 lb (156 kg) Physical Exam Constitutional: Appearance: Normal appearance. HENT: Right Ear: Tympanic membrane normal. Left Ear: Tympanic membrane normal. Mouth/Throat: Pharynx: Oropharynx is clear. No oropharyngeal exudate. Eyes: Conjunctiva/sclera: Conjunctivae normal. Cardiovascular: Rate and Rhythm: Normal rate and regular rhythm. Heart sounds: Normal heart sounds. Pulmonary: Effort: Pulmonary effort is normal. No respiratory distress. Breath sounds: Normal breath sounds. No decreased air movement. Comments: Coughing intermittently. Musculoskeletal: Cervical back: Normal range of motion and neck supple. Lymphadenopathy: Cervical: No cervical adenopathy. Neurological: Mental Status: She is alert. Psychiatric: Behavior: Behavior normal. Office Visit on 11/06/2024 Component Date Value Ref Range Status Influenza A 11/06/2024 Negative Negative, Indeterminate Final Rapid COVID Ag 11/06/2024 Negative Final Influenza B 11/06/2024 Negative Negative, Indeterminate Final Problem List Items Addressed This Visit Viral upper respiratory infection - Primary Cough x >2 weeks. No post-tussive emesis. Has been prescribed ibuprofen, prednisone and albuterol. No abx use recently. No evidence of dehydration. -will prescribe azithromycin (Zithromax) 250 MG. 11/06/24 -ordered Respiratory Viral Panel PCR 11/06/24, will call if positive. -Supportive care advised. -Isolation recommendations discussed. Relevant Medications azithromycin (Zithromax) 250 MG tablet Other Relevant Orders Respiratory Viral Panel PCR Insomnia -Taking Lexipro at night for recurring insomnia, without significant relief. -Previously recommended going to sleep earlier and waking up around 8 am to try and reset their circadian rhythm -Advised to not be on her phone before she goes to bed -given persistence of sleep difficulties and feeling tired throughout the day, referred to Sleep Medicine 11/06/24. Relevant Orders Referral to Sleep Medicine Daytime somnolence -Taking Lexipro at night for recurring insomnia, without significant relief. -Previously recommended going to sleep earlier and waking up around 8 am to try and reset their circadian rhythm -Advised to not be on her phone before she goes to bed -given persistence of sleep difficulties and feeling tired throughout the day, referred to Sleep Medicine 11/06/24. Relevant Orders Referral to Sleep Medicine Other Visit Diagnoses Cough in adult patient Relevant Orders Influenza A (ID NOW Rapid Molecular) (Completed) POCT Rapid COVID Ag (Completed) Influenza B (ID NOW Rapid Molecular) (Completed) -No evidence of acute disease process. Suspect respiratory infection, unknown source. Symptoms mild. -Ordered respiratory panel. Prescribed abx. -ER precautions discussed. -Seek medical attention for worsening symptoms. I, Trisha Daniels, am serving as a scribe to document services personally performed by Dr. Saldivar, based on the patient's response to questions by provider and providers statements to me. documented in this encounter Miscellaneous Notes * Assessment & Plan Note - Trisha Daniels - 11/06/2024 1:56 PM ESTAssociated Problem(s): Daytime somnolence -Taking Lexipro at night for recurring insomnia, without significant relief. -Previously recommended going to sleep earlier and waking up around 8 am to try and reset their circadian rhythm -Advised to not be on her phone before she goes to bed -given persistence of sleep difficulties and feeling tired throughout the day, referred to Sleep Medicine 11/06/24. * Assessment & Plan Note - Trisha Daniels - 11/06/2024 1:55 PM ESTAssociated Problem(s): Insomnia -Taking Lexipro at night for recurring insomnia, without significant relief. -Previously recommended going to sleep earlier and waking up around 8 am to try and reset their circadian rhythm -Advised to not be on her phone before she goes to bed -given persistence of sleep difficulties and feeling tired throughout the day, referred to Sleep Medicine 11/06/24. * Assessment & Plan Note - Trisha Daniels - 11/06/2024 1:52 PM ESTAssociated Problem(s): Viral upper respiratory infection Cough x >2 weeks. No post-tussive emesis. Has been prescribed ibuprofen, prednisone and albuterol. No abx use recently. No evidence of dehydration. -will prescribe azithromycin (Zithromax) 250 MG. 11/06/24 -ordered Respiratory Viral Panel PCR 11/06/24, will call if positive. -Supportive care advised. -Isolation recommendations discussed. documented in this encounter Plan of Treatment Upcoming Encounters Date Type Department Care Team (Late st Contact Info) Description 12/26/2024 11:15 AM EDT Office Visit [facility] [address] [place] [phone] Dulce Turner MD [address] [place], [place] [phone] Scheduled Orders Name Type Priority Associated Diagnoses Orde r Schedule Respiratory Viral Panel PCR Lab Routine Viral upper respiratory infection Ordered: 11/06/2024 Scheduled Referrals Name Type Priority Associated Diagnoses Orde r Schedule Referral to Sleep Medicine Outpatient Referral Routine Insomnia, unspecified type Daytime somnolence Expected: 11/06/2024 (Approximate), Expires: 11/06/2025 documented as of this encounter Procedures Procedure Name Priority Date/Time Associated Diagnosis Comments POCT INFLUENZA B (ID NOW RAPID MOLECULAR) Routine 11/06/2024 1:39 PM EST Cough in adult patient POCT INFLUENZA A (ID NOW RAPID MOLECULAR) Routine 11/06/2024 1:39 PM EST Cough in adult patient POCT RAPID COVID ANTIGEN Routine 11/06/2024 1:39 PM EST Cough in adult patient documented in this encounter Results * Influenza B (ID NOW Rapid Molecular) (11/06/2024 1:39 PM EST) Pathologist [facility] Influenza B Negative Negative, Indeterminate [facility] Swab 11/06/2024 1:39 PM EST Dulce Turner MD POINT OF CARE TEST ENTER/E DIT ORDERABLES Final Result Performing Organization Address City/State/[facility] Co de Phone Number [facility] [address] [place] [phone] * POCT Rapid COVID Ag (11/06/2024 1:39 PM EST) Pathologist [facility] Rapid COVID Ag Negative Swab 11/06/2024 1:39 PM EST Dulce Turner MD POINT OF CARE TEST ENTER/E DIT ORDERABLES Final Result * Influenza A (ID NOW Rapid Molecular) (11/06/2024 1:39 PM EST) Pathologist [facility] Influenza A Negative Negative, Indeterminate [facility] Swab 11/06/2024 1:39 PM EST Dulce Turner MD POINT OF CARE TEST ENTER/E DIT ORDERABLES Final Result [facility] [address] [place] [phone] documented in this encounter Visit Diagnoses Diagnosis Viral upper respiratory infection- Primary Acute upper respiratory infections of unspecified site Insomnia, unspecified type Cough in adult patient Daytime somnolence documented in this encounter Additional Health Concerns Assessment Noted Time PHQ-9 Depression Total Score: 12 024 4:40 PM EST documented as of this encounter Care Teams Operation Specialist Relationship Specialty Start Date End Date Dulce Turner MD [address] [place] [address] PCP - General Family Medicine 10/29/21 Deirdre Mari [facility] [address] Gynecology 10/08/24 documented as of this encounter
--- OUTSIDE RECORDS SUMMARY | 2024-11-06 17:48 | XMS_ITS | Encounter Summary ---
Author Organization [employer] Address [address] [place] [address] Care Team Providers Care Psychiatric Mental Health Nurse Name Role Phone Dulce Turner MD Primary Care Provider [phone] Deirdre Mari Unavailable [phone] Encounter Details Date Type Department Care Team (Latest Contact Info) Description 10/22/2024 Travel Social History Tobacco Use Types Packs/Day [...] Description 12/26/2024 11:15 AM EDT Office Visit [facility] [address] [place] [phone] Dulce Turner MD [address] [place] [address] documented as of this encounter Visit Diagnoses Not on filedocumented in this encounter Additional Health Concerns Assessment Noted Time PHQ-9 Depression Total Score: 12 024 4:40 PM EST documented as of this encounter Care Teams Psychiatric Mental Health Nurse Relationship Specialty Start Date End Date Dulce Turner MD [address] [place] [phone] PCP - General Family Medicine 10/29/21 Deirdre Mari [facility] [address] Gynecology 10/08/24 documented as of this encounter
--- OUTSIDE RECORDS SUMMARY | 2024-11-06 17:48 | XMS_ITS | Encounter Summary ---
Author Organization [employer] Address [address] [place] [address] Care Team Providers Care Telephone Claims Representative Name Role Phone Dulce Turner MD Primary Care Provider [phone] Deirdre Mari Unavailable Reason for Visit * Reason Comments Cough Diarrhea Sore Throat Headache Earache Encounter Details Date Type Department Care Team (Late st Contact Info) Description 10/30/2024 9:20 AM EST Office Visit [facility] [address] [place] [phone] Steven Rebollar MD [address] [place] [address] Influenza-like symptoms (Primary Dx); Viral URI Social History Tobacco Use Types Packs/Day Years [...] Sign Reading Time Taken Comments Blood Pressure 138/88 10/30/2024 9:26 AM EST Pulse 82 10/30/2024 9:26 AM EST Temperature 36.6 ??C (97.8 ??F) 10/30/2024 9:26 AM ES T Respiratory Rate 18 10/30/2024 9:26 AM EST Oxygen Saturation 97% 10/30/2024 9:26 AM EST Inhaled Oxygen Concentration - - Weight 152 kg (336 lb) 10/30/2024 9:26 AM EST Height - - Body Mass Index 54.23 10/22/2024 10:41 AM EST documented in this encounter Progress Notes * Steven Rebollar MD - 10/30/2024 9:20 AM EST Subjective Patient ID: Martine Kumari is a 24 y.o. female. HPI Has 2 week h/o runny nose, sneezing, body aches, productive cough, tactile fever but I checked with a thermometer and I never had a fever , chest tightness and SOB at night that improves with albuterol neb. Has had 3 episodes of diarrhea over past 2 weeks, last time was this AM, no blood. Had nausea with 1 episode of vomiting 2 days ago. No nausea since. Taking p.o. well. Lives alone. LMP=3 weeks ago. Working at [employer]. Never smoked. Patient Active Problem List Diagnosis Anxiety disorder, unspecified Vitamin D deficiency Morbid obesity (CMS/HCC) Hyperinsulinism Allergic rhinitis Polycystic ovary syndrome Other specified health status Abdominal pain Severe episode of recurrent major depressive disorder, without psychotic features (CMS/HCC) Mild persistent asthma without complication Insomnia Transaminitis The following portions of the chart were reviewed this encounter and updated as appropriate: Tobacco Allergies Meds Problems Med Hx Surg Hx Fam Hx Review of Systems Constitutional: Negative for fever. HENT: Positive for rhinorrhea. Respiratory: Positive for cough and shortness of breath. Negative for wheezing. Cardiovascular: Negative for chest pain. Gastrointestinal: Positive for diarrhea, nausea and vomiting. Negative for abdominal pain. Musculoskeletal: Positive for myalgias. Skin: Negative for rash. Neurological: Negative for headaches. Objective Physical Exam Constitutional: Appearance: Normal appearance. HENT: Right Ear: Tympanic membrane, ear canal and external ear normal. Left Ear: Tympanic membrane, ear canal and external ear normal. Nose: Nose normal. Mouth/Throat: Mouth: Mucous membranes are moist. Pharynx: Oropharynx is clear. Eyes: Conjunctiva/sclera: Conjunctivae normal. Pupils: Pupils are equal, round, and reactive to light. Cardiovascular: Rate and Rhythm: Normal rate and regular rhythm. Heart sounds: No murmur heard. Pulmonary: Effort: Pulmonary effort is normal. Breath sounds: Normal breath sounds. Musculoskeletal: General: Normal range of motion. Cervical back: No tenderness. Skin: Findings: No rash. Neurological: Mental Status: She is alert. Gait: Gait is intact. Psychiatric: Mood and Affect: Mood normal. Behavior: Behavior normal. Procedures Assessment/Plan Diagnoses and all orders for this visit: Influenza-like symptoms Negative rapid Covid and Influenza tests. Covid PCR and Flu tests pending. Refilled albuterol solution. Prescribed prednisone, ibuprofen. Discussed doing CXR now, but Mykilah declines at this time. Rtc if not improving. Viral URI - POCT Rapid COVID Ag - POCT rapid strep A manually resulted - Influenza A (ID NOW Rapid Molecular) - Influenza B (ID NOW Rapid Molecular) Other orders - albuterol (2.5 MG/3ML) 0.083% nebulizer solution; Take 3 mL (2.5 mg) by nebulization every 6 (six) hours if needed for wheezing or shortness of breath. - predniSONE (Deltasone) 20 MG tablet; Take 2 tablets (40 mg) by mouth Once per day for 5 days. - ibuprofen 400 MG tablet; Take 1 tablet (400 mg) by mouth every 6 (six) hours if needed for moderate pain or fever for up to 30 doses. documented in this encounter Plan of Treatment Upcoming Encounters Date Type Department Care Team (Late st Contact Info) Description 12/26/2024 11:15 AM EDT Office Visit [facility] [address] [place], [place] [phone] Dulce Turner MD [address] [place], [place] [phone] documented as of this encounter Procedures Procedure Name Priority Date/Time Associated Diagnosis Comments POCT INFLUENZA B (ID NOW RAPID MOLECULAR) Routine 10/30/2024 9:41 AM EST Viral URI POCT INFLUENZA A (ID NOW RAPID MOLECULAR) Routine 10/30/2024 9:41 AM EST Viral URI POCT RAPID COVID ANTIGEN Routine 10/30/2024 9:41 AM EST Viral URI POCT RAPID STREP A Routine 10/30/2024 9: 41 AM EST Viral URI documented in this encounter Results * Influenza B (ID NOW Rapid Molecular) (10/30/2024 9:41 AM EST) Influenza B Negative Negative, Indeterminate [facility] Swab 10/30/2024 9:41 AM EST us Steven Rebollar MD POINT OF CARE TEST ENTER/EDIT OR DERABLES Final Result [facility] [address] [place] [phone] * Influenza A (ID NOW Rapid Molecular) (10/30/2024 9:41 AM EST) [facility] Influenza A Negative Negative, Indeterminate [facility] Swab 10/30/2024 9:41 AM EST us Steven Rebollar MD POINT OF CARE TEST ENTER/EDIT OR DERABLES Final Result Performing Organization Address [facility] Co de Phone Number [facility] [address] [place] [phone] * POCT rapid strep A manually resulted (10/30/2024 9:41 AM EST) [facility] Rapid Strep A Screen Negative Negative, None Detected [facility] Swab 10/30/2024 9:41 AM EST us Steven Rebollar MD POINT OF CARE TEST ENTER/EDIT OR DERABLES Final Result Performing Organization Address [facility] Co de Phone Number [facility] [address] [place] [phone] * POCT Rapid COVID Ag (10/30/2024 9:41 AM EST) [facility] Rapid COVID Ag Negative [facility] Swab 10/30/2024 9:41 AM EST us Steven Rebollar MD POINT OF CARE TEST ENTER/EDIT OR DERABLES Final Result Performing Organization Address [facility] de Phone Number [facility] [address] [place] [phone] documented in this encounter Visit Diagnoses Diagnosis Influenza-like symptoms- Primary Other general symptoms Viral URI Acute upper respiratory infections of unspecified site documented in this encounter Additional Health Concerns Assessment Noted Time PHQ-9 Depression Total Score: 12 024 4:40 PM EST documented as of this encounter Care Teams Telephone Claims Representative Relationship Specialty Start Date End Date Dulce Turner MD [address] [place] [address] PCP - General Family Medicine 10/29/21 Deirdre Mari [address] Gynecology 10/08/24 documented as of this encounter
--- OUTSIDE RECORDS SUMMARY | 2024-11-06 17:48 | XMS_ITS | Clinical Summary ---
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 HbF. Blood transfusions may impact the HbA1c concentration in the patient sample. Estimated Average Glucose 111 mg/dL [facility] Comment:eAG = Estimated ave rage glucose which is %A1C expressed asaverage glucose, using the formula of the U2V-HblevxdTknjgrh Glucose study (ADAG), Diabetes Care, Vol.31,#8,May. 2007 Blood Venous blood specimen / Unknown 08/15/2024 9:48 AM EDT 08/15/2024 11:23 AM EDT Dulce Turner MD LAB BLOOD ORDERABLES Final Result Performing Organization Address [facility]/ZIP Co de Phone Number [facility] [address] [place] [phone] * (ABNORMAL) Hepatic Function Panel (08/15/2024 9:48 AM EDT) Bilirubin, Total 0.6 0.0 - 1.0 mg/dL [facility] Bilirubin, Direct 0.2 0.0 - 0.5 mg/dL [facility] Aspartate Amino Transferase 36(H) 5 - 31 U/L [facility] Alanine Aminotransferase 25 0 - 31 U/L [facility] Total Protein 7.4 6.5 - 8.0 g/dL [facility] Albumin Level 3.8 3.5 - 5.0 g/dL [facility] Alkaline Phosphatase 60 39 - 117 U/L [facility] Blood Venous blood specimen / Unknown 08/15/2024 9:48 AM EDT 08/15/2024 11:36 AM EDT Dulce Turner MD LAB BLOOD ORDERABLES Final Result [facility] [address] [place] [phone] * Lipid Panel, Standard (08/15/2024 9:48 AM EDT) Pathologist [facility] Triglycerides 86 <150 mg/dL [facility] Comment:Desirable Triglyceri de: less than 150 mg/dLBorderline High Triglyceride 150-199 mg/dLHigh Triglyceride: 200-499 mg/dLVery High Triglyceride: greater than or equal to 5OO mg/dL Cholesterol 132 <200 mg/dL [facility] Comment:Desirable Cholestero l: less than 200 mg/dLBorderline High Cholesterol: 200-239 mg/dLHigh Cholesterol: greater than 239 mg/dL LDL Cholesterol Calculated 73 <100 mg/dL [facility] Comment:Desirable LDL: less than 100 mg/dLNear Optimal/Above Optimal LDL: 110- 129 mg/dLBorderline High LDL: 130-159 mg/dLHigh LDL: 160-189 mg/dLVery High LDL: greater than or equal to 190 mg/dL HDL Cholesterol 42 >40 mg/dL [facility] Comment:Desirable HDL: great er than 40 mg/dL Note: This HDL assay may give artificially low results in patients with liver disease. Blood Venous blood specimen / Unknown 08/15/2024 9:48 AM EDT 08/15/2024 11:36 AM EDT Dulce Turner MD LAB BLOOD ORDERABLES Final Result Performing Organization Address [facility]/ZIP Co de Phone Number [facility] [address] [place] [phone] * (ABNORMAL) Basic Metabolic Panel (08/15/2024 9:48 AM EDT) Sodium 139 135 - 145 mmol/L [facility] Potassium 3.9 3.3 - 5.1 mmol/L [facility] Chloride 107 96 - 108 mmol/L [facility] Carbon Dioxide 24 22 - 29 mmol/L [facility] Anion Gap 12 12 - 20 [facility] Urea Nitrogen (BUN) 14 9 - 16 mg/dL [facility] Creatinine, Serum 0.79 0.5 - 1.4 mg/dL [facility] Estimated Glomerular Filt Rate >60 [facility] Comment:NOTE: For -Am erican individuals, multiply the result by 1.210.Chronic Kidney Disease: Estimated GFR < 60 mL/min/1.74e3Frtetp Kidney Disease: Estimated GFR < 15 mL/min/1.73m2 Glucose 98 60 - 115 mg/dL [facility] Calcium 8.0(L) 8.4 - 10.2 mg/dL [facility] Blood Venous blood specimen / Unknown 08/15/2024 9:48 AM EDT 08/15/2024 11:36 AM EDT Dulce Turner MD LAB BLOOD ORDERABLES Final Result Performing Organization Address [facility]/ZIP Co de Phone Number [facility] [address] [place] [phone] * Pap Smear (08/12/2023) Pap Smear 1. NILM 1. NILM Comment:Kathya Murrieta DO Swab 08/12/2023 Landon Webb MD LAB CYTOLOGY ORDERABLES F inal Result * Hepatitis C Antibody with Reflex to HCV, RNA, Quantitative, Real-Time PCR (08/11/2023 11:19 AM EDT) Hepatitis C Antibody Nonreactive Nonreactive [facility] Comment:Antibodies to HCV no t detected; does not exclude early acuteHCV infection. Blood Venous blood specimen / Unknown 08/11/2023 11:19 AM EDT 08/11/2023 12:59 PM EDT Dulce Turner MD LAB BLOOD ORDERABLES Final Result Performing Organization Address City/State/[facility] Co de Phone Number 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
--- OUTSIDE RECORDS SUMMARY | 2024-11-06 17:48 | XMS_ITS | Encounter Summary ---
Author Organization [employer] Address [address] [facility] [address] [place] [address] Care Team Providers Care High School Art Teacher Name Role Phone Dulce Turner MD Primary Care Provider [phone] Deirdre Mari Unavailable [phone] Reason for Visit * Reason Onset Date Comments Nurse Triage 03/22/2023 Encounter Details Date Type Department Care Team (Late st Contact Info) Description 03/22/2023 Telephone [facility] [address] [place] [address] Dulce Turner MD [address] [place], [place] [phone] Nurse Triage Social History Tobacco Use Types Packs/Day Years Used Date Smoking Tobacco: Never Smokeless Tobacco: Never Depression Answer Date [...] encounter Miscellaneous Notes * Telephone Encounter - Courtney Alvarado RN - 03/22/2023 9:27 AM EDT Call returned to Martine Kumari for triage. No answer LVM to return call to [facility] triage line [phone]. Protocol Used: No Contact or Duplicate Contact Call (Adult) Protocol-Based Disposition: No Contact Call Positive Triage Question: * Message left on identified voicemail * All higher-acuity triage questions were negative * Telephone Encounter - Jazzmine Mitchell - 03/22/2023 9:07 AM EDT Symptom: Cough Outcome: Schedule an urgent appointment (within 1 hour) or talk to a nurse or provider soon Reason: Wheezing (high-pitched whistling sound) The caller accepted this outcome Please contact at [phone] documented in this encounter Plan of Treatment Upcoming Encounters Date Type Department Care Team (Late st Contact Info) Description 12/26/2024 11:15 AM EDT Office Visit [facility] [address] [place] [address] Dulce Turner MD [address] [place] [address] documented as of this encounter Visit Diagnoses Not on filedocumented in this encounter Additional Health Concerns Assessment Noted Time PHQ-9 Depression Total Score: 23 023 10:58 AM EDT documented as of this encounter Care Teams High [employer] Art Teacher Relationship Specialty Start Date End Date Dulce Turner MD [address] [place] [address] PCP - General Family Medicine 10/29/21 Deirdre Mari [address] [facility] [address] [place] [address] Gynecology 10/08/24 documented as of this encounter
--- OUTSIDE RECORDS SUMMARY | 2024-11-06 17:48 | XMS_ITS | Encounter Summary ---
Author Organization [employer] Address [address] [facility] [address] [place] [address] Care Team Providers Care Industrial Roofer Name Role Phone Dulce Turner MD Primary Care Provider [phone] Deirdre Mari Unavailable [phone] Reason for Visit * Reason Onset Date Comments Referral 01/23/2024 Encounter Details Date Type Department Care Team (Late st Contact Info) Description 01/23/2024 Telephone [facility] [address] [place] [address] Dulce Turner MD [address] [place] [address] Referral Social History Tobacco Use Types Packs/Day Years Used Date Smoking Tobacco: Never Passive Smoke Exposure: Never Smokeless Tobacco: Never Alcohol Use Standard Drinks/Week Comments Not Currently 0 (1 standard drink = 0.6 oz pur e alcohol) oca Depression Answer Date Recorded Patient Health Questionnaire-9 Score 23 03/16/2023 Housing Stability Answer Date Recorded What is your housing situation today? I have fred pappas 08/10/[address] you li ve. Do you have problems with any of the following? None of the above 08/10/2023 Food Insecurity Answer Date Recorded Within the past 12 months, y ou worried that your food would run out before you got money to buy more: Never True 08/10/2023 Within the past 12 months,th e food you bought just didn't last and you didn't have enough money to get more: Never True Transportation Answer Date Recorded In the past 12 months, has l ack of transportation kept you from medical appts, meetings, work or from getting things needed for daily living? No 08/10/2023 Utilities Answer Date Recorded In the past 12 months, has t he electric, gas, oil or water company threatened to shut off services in your home? No 08/10/2023 Depression Answer Date Recorded Patient Health Questionnaire-2 Score 6 03/16/2023 Comments Unknown Sex and Gender Information Value Date Recorded Sex Assigned at Female 08/16/2022 10:38 AM EDT Legal Sex Female 10:38 AM EDT Gender Identity Female 08/16/2022 10:38 AM EDT Sexual Orientation Lesbian or Manzano 08/16/2022 10 :38 AM EDT documented as of this encounter Miscellaneous Notes * Telephone Encounter - Dorene Barajas - 01/23/2024 1:22 PM EDT Tc from pt mother requesting a client relation specialist .Informs pt was seen at [facility] [place] . Please call to clarify . documented in this encounter Plan of Treatment Upcoming Encounters Date Type Department Care Team (Late st Contact Info) Description 12/26/2024 11:15 AM EDT Office Visit [facility] [address] [place] [address] Dulce Turner MD [address] [place] [address] documented as of this encounter Visit Diagnoses Not on filedocumented in this encounter Additional Health Concerns Assessment Noted Time PHQ-9 Depression Total Score: 23 023 10:58 AM EDT documented as of this encounter Care Teams Industrial Roofer Relationship Specialty Start Date End Date Dulce Turner MD [address] [place] [address] PCP - General Family Medicine 10/29/21 Deirdre Mari [address] Gynecology 10/08/24 documented as of this encounter
--- OUTSIDE RECORDS SUMMARY | 2024-11-06 17:49 | XMS_ITS | Clinical Summary ---
Author Organization [employer] [facility] Address [address] [place] [address] Care Team Providers Care Frozen Foods Manager Name Role Phone Unavailable Primary Care Provider Unavailabl e Social History Tobacco Use Types Packs/Day Years Used Date Smoking Tobacco: Never Assessed Sex and Gender Information Value Date Recorded Sex Assigned at Not on file Gender Identity Not on file Sexual Orientation Not on file Plan of Treatment Health Maintenance Due Date Last Done Comments HPV Vaccines (1 - 3-dose series) 2014 Hepatitis B Vaccines (1 of 3 - 19+ 3-dose series) 2018 Cervical Cancer Screening: P ap Smear 2020 Depression Screening 09/19/2022 HIV Screening 09/19/2022 Hepatitis C Screening 09/19/2022 Social Influencers of Health Screening 09/19/2022 COVID-19 Vaccine (1 - 2023-2 5 season) 2024 Influenza Vaccine (#1) 2024 DTaP,Tdap,and Td Vaccines (2 - Td or Tdap) 01/06/2030 01/07/2020 HIB Vaccines Aged Out No longer eligi ble based on patient's age to complete this topic Hepatitis A Vaccines Aged Out No long er eligible based on patient's age to complete this topic IPV Vaccines Aged Out No longer eligi ble based on patient's age to complete this topic MMR Vaccines Aged Out No longer eligi ble based on patient's age to complete this topic Meningococcal ACWY Vaccine Aged Out N o longer eligible based on patient's age to complete this topic Pneumococcal Vaccine: Pediat rics (0 to 5 Years) and At-Risk Patients (6 to 64 Years) Aged Out No longer eligi ble based on patient's age to complete this topic RSV Immunization Patients Un tona 20 months Aged Out No longer eligible b ased on patient's age to complete this topic Varicella Vaccines Aged Out No longer eligible based on patient's age to complete this topic
[2024-11-07 13:53] LABS: Adenovirus PCR Not Detected (Not Detect.); Bordetella parapertussis PCR Not Detected (Not Detect.); Bordetella pertussis PCR Not Detected (Not Detect.); Chlamydia pneumoniae PCR Not Detected (Not Detect.); Coronavirus 229E PCR Not Detected (Not Detect.); Coronavirus HKU1 PCR Not Detected (Not Detect.); Coronavirus NL63 PCR Not Detected (Not Detect.); Coronavirus OC43 PCR Not Detected (Not Detect.); Human metapneumovirus PCR Not Detected (Not Detect.); Influenza A PCR Not Detected (Not Detect.); Influenza B PCR Not Detected (Not Detect.); Mycoplasma pneumoniae PCR Not Detected (Not Detect.); Parainfluenza 1 PCR Not Detected (Not Detect.); Parainfluenza 2 PCR Not Detected (Not Detect.); Parainfluenza 3 PCR Not Detected (Not Detect.); Parainfluenza 4 PCR Not Detected (Not Detect.); RSV PCR Not Detected (Not Detect.); Rhino/Enterovirus PCR Not Detected (Not Detect.)
[2024-11-07 14:25] LABS: SARS-CoV-2 PCR Not Detected (Not Detect.)
== END 2024-11-06 13:56 | disposition home or self-care (01) ==
LOC: HO.LNP 13:55
PROVIDERS: Visit Provider Family Medicine
DX: J06.9 Acute upper respiratory infection, unspecified (principal)
CPT/HCPCS: 87633

== ENCOUNTER 2025-07-31 10:13 | Outpatient (REF) | payer MEDICAID, SELFPAY ==
--- OUTSIDE RECORDS SUMMARY | 2025-07-31 09:30 | XMS_ITS | Encounter Summary ---
Author Organization [employer] Address [address] [place] [address] [facility] [place] [address] Care Team Providers Care Dialysis Chief Equipment Technician Name Role Phone Dulce Turner MD Primary Care Provider [phone]- [phone] Deirdre Mari Unavailable [phone] Chandler Montez PMHNP Unavailable Unavailable Reason for Referral * Consultation (Routine) - Authorized Specialty Diagnoses / Procedures Referred By Lorene boggs Referred To Contact Pulmonary Disease Diagnoses Mild persistent asthma without complication Dulce Turner MD [address] [place] [address] Phone: tel: fax: [facility] Referral ID Status Reason Start Date Expiration Date Visits Requested Visits Authorized [id number] Authorized Specialty Services Required 07/31/2026 1 1 Encounter Details Date Type Department Care Team (Late st Contact Info) Description 07/31/2025 9:30 AM EDT Office Visit [facility] MEDICINE [address] [place] [address] [phone] Dulce Turner MD [address] [place] [address] Anxiety disorder, unspecified type (Primary Dx); Moderate episode of recurrent major depressive disorder (CMS/HCC) (HCC); Morbid obesity (CMS/HCC) (HCC); Polycystic ovary syndrome; Mild persistent asthma without complication; Pain; Vitamin D deficiency; Encounter for immunization; Other specified health status Social History Tobacco Use Types Packs/Day Years Used Date Smoking Tobacco: Never Passive Smoke Exposure: Never Smokeless Tobacco: Never Alcohol Use Standard Drinks/Week Comments Not Currently 0 (1 standard drink = 0.6 oz pur e alcohol) oca Depression Answer Date Recorded Patient Health Questionnaire-9 Score 8 02/13/2025 Patient Health Questionnaire-9 Score 8 02/13/2025 Last PHQ-9: Questionnaire Data Not on file 0 02/13/2025 Housing Stability Answer Date Recorded What is your housing situation today? I have fred mian 08/02/[address] you li [...] Answer Date Recorded Patient Health Questionnaire-2 Score 4 02/13/2025 Internet Access Answer Date Recorded Internet Access Q1 Yes 08/02/2024 Internet Access Q2 Not on file 08/02/2024 Comments Unknown Intention Date Recorded No desire to become (finding) 1 Sex and Gender Information Value Date Recorded Sex Assigned at Female 08/16/2022 10:38 AM EDT Legal Sex Female 10:38 AM EDT Gender Identity Female 08/16/2022 10:38 AM EDT Sexual Orientation Lesbian or Manzano 08/16/2022 10 :38 AM EDT documented as of this encounter Last Filed Vital Signs Vital Sign Reading Time Taken Comments Blood Pressure 130/84 07/31/2025 9:36 AM EDT Pulse 56 07/31/2025 9:36 AM EDT Temperature 36.7 C (98.1 F) 07/31/2025 9:36 AM EDT Respiratory Rate 19 07/31/2025 9:36 AM EDT Oxygen Saturation - - Inhaled Oxygen Concentration - - Weight 143 kg (315 lb 2 oz) 07/31/2025 9:36 AM E DT Height 168.9 cm (5' 6.5 ) 07/31/2025 9:36 AM EDT Body Mass Index 50.1 07/31/2025 9:36 AM EDT documented in this encounter Progress Notes * Dulce Turner MD - 07/31/2025 9:30 AM EDT Subjective Patient ID: Martine Kumari is a 25 y.o. female with past medical history of PCOS, major depressive disorder and asthma who presents for weight check and comprehensive annual exam. 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 Current concerns: Anxiety and Depression - Ongoing anxiety described as through the roof for an extended period - History of depression - Previously saw a therapist, but therapy discontinued due to insurance issues - Reports daily symptoms of depression - Difficulty obtaining disability benefits for depression - Agrees to behavior health consult and increasing Lexapro from 5 mg to 10mg 07/31/25 while awaiting psychiatrist - Denies daytime tiredness - Denies stopping breathing at night Obesity and Weight Concerns - Reports stable weight at 315 lbs - Self discontinue zepbound 1 month ago due to allergic skin reaction, feeling ill from med and concern about potential pancreatic side effects - Did not go to sleep medicine for evaluation of possible KATHERINE and reports symptoms improved with weight loss. Asthma - Uses albuterol inhaler and asthma machine capsules, currently controlled - Would like to reestablish with pulmonology due to history moderate persistent asthma, worse in cold weather - No current capsules for asthma machine Plantar Fasciitis - Reports ongoing foot pain, unsure if plantar fasciitis is still present - Followed by cafe team member Dr. 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 Respiratory: Negative for shortness of breath. Cardiovascular: Negative for chest pain. Gastrointestinal: Negative for abdominal pain. Genitourinary: Negative for difficulty urinating. Allergies Reviewed by Claire Crawford MA on 07/31/2025 No Known Allergies Current Medications[1] Problem List[2] Allergies Reviewed by Claire Crawford MA on 07/31/2025 No Known Allergies Current Medications[3] Problem List[4] has no past surgical history on file. family history includes Diabetes in her maternal grandfather. reports that she has never smoked. She has never been exposed to tobacco smoke. She has never used smokeless tobacco. She reports that she does not currently use alcohol. She reports current drug use. Drug: Marijuana. has no past surgical history on file. family history includes Diabetes in her maternal grandfather. reports that she has never smoked. She has never been exposed to tobacco smoke. She has never used smokeless tobacco. She reports that she does not currently use alcohol. She reports current drug use. Drug: Marijuana. Objective Visit Vitals BP 130/84 (BP Location: Left arm, Patient Position: Sitting, BP Cuff Size: Large adult) Pulse 56 Temp 98.1 ??F (36.7 ??C) (Oral) Resp 19 Ht 5' 6.5 (1.689 m) Wt 315 lb 2 oz (143 kg) BMI 50.10 kg/m?? Smoking Status Never BSA 2.59 m?? Physical Exam Constitutional: Appearance: Normal appearance. HENT: Head: Normocephalic. Right Ear: Tympanic membrane normal. Left Ear: Tympanic membrane normal. Mouth/Throat: Pharynx: Oropharynx is clear. No oropharyngeal exudate. Eyes: Conjunctiva/sclera: Conjunctivae normal. Pupils: Pupils are equal, round, and reactive to light. Cardiovascular: Rate and Rhythm: Normal rate and regular rhythm. Heart sounds: Normal heart sounds. Pulmonary: Effort: Pulmonary effort is normal. Breath sounds: Normal breath sounds. Abdominal: General: Abdomen is flat. Palpations: There is no mass. Tenderness: There is no abdominal tenderness. Musculoskeletal: General: Normal range of motion. Cervical back: Normal range of motion and neck supple. No rigidity or tenderness. Lymphadenopathy: Cervical: No cervical adenopathy. Skin: General: Skin is warm and dry. Neurological: General: No focal deficit present. Mental Status: She is alert. Psychiatric: Behavior: Behavior normal. Assessment & Plan Anxiety disorder, unspecified type -reports though the anali d ,denies suicidial or homacidial ideation -mom requesting FMLA due to uncontrolled symptoms . I agree as long as she is presuing treatment via behavioral health -no longer seeing therapist, agrees to behavior health referral 07/31/25 -increase Lexapro from 5mg to 10mg 07/31/25 -return in 3 months Orders: escitalopram (Lexapro) 10 MG tablet; Take 1 tablet (10 mg) by mouth Once per day. TSH with Reflex to Free T4; Future Moderate episode of recurrent major depressive disorder (CMS/HCC) ([facility]) -reports though the roof d ,denies suicidial or homacidial ideation -mom requesting FMLA due to uncontrolled symptoms . I agree as long as she is presuing treatment via behavioral health -no longer seeing therapist, agrees to behavior health referral 07/31/25 -increase Lexapro from 5mg to 10mg 07/31/25 -return in 3 months Orders: escitalopram (Lexapro) 10 MG tablet; Take 1 tablet (10 mg) by mouth Once per day. Morbid obesity (CMS/HCC) ([facility]) - Baseline Weight: 339 lbs 10/22/24 BMI Readings from Last 3 Encounters: 07/31/25 50.10 kg/m?? 03/04/25 50.68 kg/m?? 02/13/25 51.84 kg/m?? Wt Readings from Last 3 Encounters: 07/31/25 315 lb 2 oz (143 kg) 03/04/25 314 lb (142 kg) 02/13/25 321 lb 3.2 oz (146 kg) Has had improvement in secondary outcomes with weight loss medication use. -Zepbound (tirzepatide) weight loss injections started 08/22/2024. He lost about 29 lbs (8% of bodyweight) and self discontinue 06/2015 due to injection site reaction, nausea and concerns about possible pancreatic side effects. Dietary Recommendations: Fruits, vegetables, whole grains, protein foods, and fat-free or low-fat dairy products are healthychoices. Eat different types of protein foods in your diet. This can include seafood, lean meats, poultry, beans, peas, lentils, nuts, seeds, soy products, and eggs. Limit foods and beverages higher in added sugars, saturated fat, and sodium. Exercise Recommendations: At least 150 minutes of moderate-intensity physical activity per week, or an equivalent combinationof moderate- and vigorous-intensity activity Orders: Hepatic Function Panel; Future Lipid Panel, Standard; Future TSH with Reflex to Free T4; Future Hemoglobin A1c; Future Polycystic ovary syndrome Orders: desogestrel-ethinyl estradiol (Isibloom) 0.15-30 MG-MCG tablet; Take 1 tablet by mouth Once per day. Mild persistent asthma without complication - followed by traffic analysis technician Dr. Fermin, until 2021 - denies regular use for albuterol - new pulmonology referral placed 07/31/25 Orders: albuterol (2.5 MG/3ML) 0.083% nebulizer solution; Take 3 mL (2.5 mg) by nebulization every 6 (six) hours if needed for wheezing or shortness of breath. albuterol 108 (90 Base) MCG/ACT inhaler; Inhale 2 puffs every 4 (four) hours if needed for wheezingor shortness of breath. Referral to Pulmonology; Future Pain Not active but prn ibuprofen if needed for pain. Orders: ibuprofen 400 MG tablet; Take 1.5 tablets (600 mg) by mouth every 8 (eight) hours if needed for moderate pain. Vitamin D deficiency Orders: Vitamin D, 25-Hydroxy, Total, Immunoassay; Future Encounter for immunization Orders: FLU VACCINE TRIVALENT [id number] (Fluarix) 19 yrs + Other specified health status -next comprehensive annual evaluation due after 07/31/26 -eye care facilitated by [facility] -dental home is [facility] -[facility] proxy filed 08/24/24 Follow up in about 3 months (around 10/31/2025) for follow up depression med increase. [1] Current Outpatient Medications Medication Sig Dispense Refill naloxone (Narcan) 0.4 MG/ML injection Inject 5 mL (2 mg) into the muscle if needed for opioid reversal. 1 mL prn triamcinolone (Kenalog) 0.1 % cream Apply topically if needed in the morning and at bedtime (pain and swelling). 30 g 2 albuterol (2.5 MG/3ML) 0.083% nebulizer solution Take 3 mL (2.5 mg) by nebulization every 6 (six) hours if needed for wheezing or shortness of breath. 75 mL 1 albuterol 108 (90 Base) MCG/ACT inhaler Inhale 2 puffs every 4 (four) hours if needed for wheezing or shortness of breath. 18 g 2 desogestrel-ethinyl estradiol (Isibloom) 0.15-30 MG-MCG tablet Take 1 tablet by mouth Once per day.28 tablet 3 escitalopram (Lexapro) 10 MG tablet Take 1 tablet (10 mg) by mouth Once per day. 30 tablet 2 ibuprofen 400 MG tablet Take 1.5 tablets (600 mg) by mouth every 8 (eight) hours if needed for moderate pain. 30 tablet 0 No current facility-administered medications for this visit. [2] Patient Active Problem List Diagnosis Anxiety disorder, unspecified Vitamin D deficiency Morbid obesity (CMS/HCC) (HCC) Hyperinsulinism Allergic rhinitis Polycystic ovary syndrome Other specified health status Abdominal pain Episode of recurrent major depressive disorder ([facility]) Mild persistent asthma without complication Insomnia Transaminitis Viral upper respiratory infection Marijuana use Exercise counseling [3] Current Outpatient Medications Medication Sig Dispense Refill naloxone (Narcan) 0.4 MG/ML injection Inject 5 mL (2 mg) into the muscle if needed for opioid reversal. 1 mL prn triamcinolone (Kenalog) 0.1 % cream Apply topically if needed in the morning and at bedtime (pain and swelling). 30 g 2 albuterol (2.5 MG/3ML) 0.083% nebulizer solution Take 3 mL (2.5 mg) by nebulization every 6 (six) hours if needed for wheezing or shortness of breath. 75 mL 1 albuterol 108 (90 Base) MCG/ACT inhaler Inhale 2 puffs every 4 (four) hours if needed for wheezing or shortness of breath. 18 g 2 desogestrel-ethinyl estradiol (Isibloom) 0.15-30 MG-MCG tablet Take 1 tablet by mouth Once per day.28 tablet 3 escitalopram (Lexapro) 10 MG tablet Take 1 tablet (10 mg) by mouth Once per day. 30 tablet 2 ibuprofen 400 MG tablet Take 1.5 tablets (600 mg) by mouth every 8 (eight) hours if needed for moderate pain. 30 tablet 0 No current facility-administered medications for this visit. [4] Patient Active Problem List Diagnosis Anxiety disorder, unspecified Vitamin D deficiency Morbid obesity ([facility]) ([facility]) Hyperinsulinism Allergic rhinitis Polycystic ovary syndrome Other specified health status Abdominal pain Episode of recurrent major depressive disorder (CMS/HCC) Mild persistent asthma without complication Insomnia Transaminitis Viral upper respiratory infection Marijuana use Exercise counseling documented in this encounter Miscellaneous Notes * Assessment & Plan Note - Dulce Turner MD - 07/31/2025 9:30 AM EDT Associated Problem(s): Morbid obesity (CMS/HCC) (HCC) - Baseline Weight: 339 lbs 10/22/24 BMI Readings from Last 3 Encounters: 07/31/25 50.10 kg/m?? 03/04/25 50.68 kg/m?? 02/13/25 51.84 kg/m?? Wt Readings from Last 3 Encounters: 07/31/25 315 lb 2 oz (143 kg) 03/04/25 314 lb (142 kg) 02/13/25 321 lb 3.2 oz (146 kg) Has had improvement in secondary outcomes with weight loss medication use. -Zepbound (tirzepatide) weight loss injections started 08/22/2024. He lost about 29 lbs (8% of bodyweight) and self discontinue 06/2015 due to injection site reaction, nausea and concerns about possible pancreatic side effects. Dietary Recommendations: Fruits, vegetables, whole grains, protein foods, and fat-free or low-fat dairy products are healthychoices. Eat different types of protein foods in your diet. This can include seafood, lean meats, poultry, beans, peas, lentils, nuts, seeds, soy products, and eggs. Limit foods and beverages higher in added sugars, saturated fat, and sodium. Exercise Recommendations: At least 150 minutes of moderate-intensity physical activity per week, or an equivalent combinationof moderate- and vigorous-intensity activity Orders: Hepatic Function Panel; Future Lipid Panel, Standard; Future TSH with Reflex to Free T4; Future Hemoglobin A1c; Future * Assessment & Plan Note - Dulce Turner MD - 07/31/2025 9:30 AM EDT Associated Problem(s): Episode of recurrent major depressive disorder (CMS/HCC) -reports though the roof d ,denies suicidial or homacidial ideation -mom requesting FMLA due to uncontrolled symptoms . I agree as long as she is presuing treatment via behavioral health -no longer seeing therapist, agrees to behavior health referral 07/31/25 -increase Lexapro from 5mg to 10mg 07/31/25 -return in 3 months Orders: escitalopram (Lexapro) 10 MG tablet; Take 1 tablet (10 mg) by mouth Once per day. * Assessment & Plan Note - Dulce Turner MD - 07/31/2025 9:30 AM EDT Associated Problem(s): Anxiety disorder, unspecified -reports though the roof d ,denies suicidial or homacidial ideation -mom requesting FMLA due to uncontrolled symptoms . I agree as long as she is presuing treatment via behavioral health -no longer seeing therapist, agrees to behavior health referral 07/31/25 -increase Lexapro from 5mg to 10mg 07/31/25 -return in 3 months Orders: escitalopram (Lexapro) 10 MG tablet; Take 1 tablet (10 mg) by mouth Once per day. TSH with Reflex to Free T4; Future * Assessment & Plan Note - Dulce Turner MD - 07/31/2025 9:30 AM EDT Associated Problem(s): Polycystic ovary syndrome Orders: desogestrel-ethinyl estradiol (Isibloom) 0.15-30 MG-MCG tablet; Take 1 tablet by mouth Once per day. * Assessment & Plan Note - Dulce Turner MD - 07/31/2025 9:30 AM EDT Associated Problem(s): Mild persistent asthma without complication - followed by traffic analysis technician Dr. Fermin, until 2021 - denies regular use for albuterol - new pulmonology referral placed 07/31/25 Orders: albuterol (2.5 MG/3ML) 0.083% nebulizer solution; Take 3 mL (2.5 mg) by nebulization every 6 (six) hours if needed for wheezing or shortness of breath. albuterol 108 (90 Base) MCG/ACT inhaler; Inhale 2 puffs every 4 (four) hours if needed for wheezingor shortness of breath. Referral to Pulmonology; Future * Assessment & Plan Note - Dulce Turner MD - 07/31/2025 9:30 AM EDT Associated Problem(s): Vitamin D deficiency Orders: Vitamin D, 25-Hydroxy, Total, Immunoassay; Future * Assessment & Plan Note - Dulce Turner MD - 07/31/2025 9:30 AM EDT Associated Problem(s): Other specified health status -next comprehensive annual evaluation due after 07/31/26 -eye care facilitated by [facility] -dental home is [facility] -[facility] care proxy filed 08/24/24 documented in this encounter Plan of Treatment Scheduled Orders Name Type Priority Associated Diagnoses Orde r Schedule Hepatic Function Panel Lab Routine Morbid obesity ([facility]) ([facility]) Expected: 07/31/2025 (Approximate), Expires: 07/31/2026 Lipid Panel, Standard Lab Routine Morbid obesity ([facility]) ([facility]) Expected: 07/31/2025 (Approximate), Expires: 07/31/2026 TSH with Reflex to Free T4 Lab Routine Morbid obesity ([facility]) ([facility]) Anxiety disorder, unspecified type Expected: 07/31/2025 (Approximate), Expires: 07/31/2026 Vitamin D, 25-Hydroxy, Total, Immunoassay Lab Routine Vitamin D deficiency Expected: 07/31/2025 (Approximate), Expires: 07/31/2026 Scheduled Referrals Name Type Priority Associated Diagnoses Orde r Schedule Referral to Pulmonology Outpatient Referral Routine Mild persistent asthma without complication Expected: 07/31/2025 (Approximate), Expires: 07/31/2026 documented as of this encounter Procedures Procedure Name Priority Date/Time Associated Diagnosis Comments HEMOGLOBIN A1C Routine 07/31/2025 10:20 AM EDT Morbid obesity ([facility]) ([facility]) documented in this encounter Results * Hemoglobin A1c (07/31/2025 10:20 AM EDT) Hemoglobin A1c 5.3 <6.0 % [facility] Comment:Hemoglobin A1C Refer ence Range Adults: 4.8 - 6.0 % Non diabetic: < 6.0 % Goal: < 7.0 %Additional Action Suggested: > 8.0 %Note: Hemoglobin A1c results are invalid for patients with abnormal amounts of HbF. Blood transfusions may impact the HbA1c concentration in the patient sample. Estimated Average Glucose 105 mg/dL [facility] Comment:eAG = Estimated ave rage glucose which is %A1C expressed asaverage glucose, using the formula of the X5H-PvvdhohBdcpvzm Glucose study (ADAG), Diabetes Care, Vol.31,#8,2007 Blood Venous blood specimen / Unknown 07/31/2025 10:20 AM EDT 07/31/2025 11:14 AM EDT Dulce Turner MD LAB BLOOD ORDERABLES Final Result [facility] [address] [place] [address] [phone] documented in this encounter Visit Diagnoses Diagnosis Anxiety disorder, unspecified type- Primary Moderate episode of recurrent major depressive disorder (CMS/HCC) (HCC) Morbid obesity (CMS/HCC) (HCC) Morbid obesity Polycystic ovary syndrome Polycystic ovaries Mild persistent asthma without complication Pain Generalized pain Vitamin D deficiency Encounter for immunization Other specified health status documented in this encounter Additional Health Concerns Assessment Noted Time PHQ-9 Depression Total Score: 8 02/14/20 25 11:41 AM EDT documented as of this encounter Care Teams Dialysis Chief Equipment Technician Relationship Specialty Start Date End Date Dulce Turner MD [address] [place] [id number] PCP - General Family Medicine 10/29/21 Deirdre Mari [address] [place] [address] Gynecology 10/08/24 Chandler Montez PMHNP [address] [place] [address] Nurse Practitioner Psychiatry 02/13/25 Rickie AQUINO Psychology 02/13/25 documented as of this encounter
--- OUTSIDE RECORDS SUMMARY | 2025-07-31 12:06 | XMS_ITS | Encounter Summary ---
Author Organization [employer] Address [address] [place] [address] [address]t [place] [address] Care Team Providers Care Front Line Supervisor Name Role Phone Dulce Turner MD Primary Care Provider [phone]- [phone] Deirdre Mari Unavailable [phone] Chandler Montez PMHNP Unavailable Unavailable Encounter Details Date Type Department Care Team (Late st Contact Info) Description 04/06/2023 Orders Only [facility] [address] [place] [address] Dulce Turner MD [address] [place], [place] [id number] Social History Tobacco Use Types Packs/Day Years [...] as of this encounter Plan of Treatment Not on file documented as of this encounter Visit Diagnoses Not on filedocumented in this encounter Additional Health Concerns Assessment Noted Time PHQ-9 Depression Total Score: 23 023 10:58 AM EDT documented as of this encounter Care Teams Front Line Supervisor Relationship Specialty Start Date End Date Dulce Turner MD [address] [place] [id number] PCP - General Family Medicine 10/29/21 Deirdre Mari [address] [place] [address] Gynecology 10/08/24 Chandler Montez PMHNP [address] [place] [address] Nurse Practitioner Psychiatry 02/13/25 Rickie AQUINO Psychology 02/13/25 documented as of this encounter
--- OUTSIDE RECORDS SUMMARY | 2025-07-31 12:06 | XMS_ITS | Clinical Summary ---
Author Organization [facility] Address [address] [place] [address] Phone Care Team Providers Care Roving Tester Laboratory Name Role Phone Yue Andersen MD Primary Care Provider Encounters Date Type Department Care Team Description 05/30/2025 2:00 PM EDT Office Visit Orthopedic Surgery [facility] [address] [facility] [address] [place] [address] Rodney Hurtado, DPM Plantar fascial fibromatosis (Primary Dx); Disorder of the skin and subcutaneous tissue, unspecified; Equinus contracture of ankle from Last 3 Months Social History Tobacco Use Types Packs/Day Years Used Date Smoking Tobacco: Never Assessed Comments Unknown Sex and Gender Information Value Date Recorded Sex Assigned at Not on file Legal Sex Female 9:45 AM EST Gender Identity Not on file Sexual Orientation Not on file Plan of Treatment Health Maintenance Due Date Last Done Comments Social Influencers of Health Screening 09/19/2022 Depression Screening 10/17/2024 Influenza Vaccine (#1) 2025 , 07/13/2023, 10/12/2022, Additional history exists Cervical Cancer Screening: Pap Smear 08/12/2026 08/12/2023 Cholesterol Screening (Lipid Panel) 08/15/2029 08/15/2024 DTaP,Tdap,and Td Vaccines (8 - Td or Tdap) 01/06/2030 01/07/2020, 12/04/2010, 09/27/2003, Additional history exists RSV Immunization Adult Patients (1 - 1-dose 75+ series) 2074 HIB Vaccines Completed 10/06/2000, 12/1999, 1999, Additional history exists IPV Vaccines Completed 09/27/2003, 03/2001, 1999, Additional history exists MMR Vaccines Completed 09/27/2003, 10/06/2000 HPV Vaccines Completed 03/14/2009, 10/18, 09/06/2008 Varicella Vaccines Completed 11/06/2009, 07/07/2000 Meningococcal ACWY Vaccine Aged Out 12/10/2014, No longer eligible based on patient's age to complete this topic Hepatitis B Vaccines Completed 10/21/2022, 07/07/2000, 04/04/2000, Additional history exists Hepatitis C Screening Completed 08/11/2023 HIV Screening Completed 08/15/2024 COVID-19 Vaccine Completed 08/22/2024, 10/21/2022 Pneumococcal Vaccine: Pediatrics (0 to 5 Years) and At-Risk Patients (6 to 49 Years) Completed 08/22/2024, 10/24/2012, 03/22/2001, Additional history exists Hepatitis A Vaccines Aged Out No long er eligible based on patient's age to complete this topic Meningococcal B Vaccine Aged Out No l onger eligible based on patient's age to complete this topic RSV Immunization Patients Under 20 months Aged Out No longer eligible based on patient's age to complete this topic Insurance MEDICAID - [place] Care Teams Roving Tester Laboratory Relationship Specialty Start Date End Date Yue Andersen MD [address] [place] [id number] PCP - General Internal Medicine 03/06/25
--- OUTSIDE RECORDS SUMMARY | 2025-07-31 12:06 | XMS_ITS | Encounter Summary ---
Author Organization [employer] Address [address] [facility] [address] [place] [address] Care Team Providers Care Restaurant Area Manager Name Role Phone Dulce Turner MD Primary Care Provider [phone] Deirdre Mari Unavailable [phone] Chandler Montez PMHNP Unavailable Unavailable Reason for Visit * Reason Onset Date Comments Referral 01/23/2024 Encounter Details Date Type Department Care Team (Late st Contact Info) Description 01/23/2024 Telephone [facility] MEDICINE [address] [place], [place] [phone] Dulce Turner MD [address] [place], [place] [phone] Referral Social History Tobacco Use Types Packs/Day Years Used Date Smoking Tobacco: Never Passive Smoke Exposure: Never Smokeless Tobacco: Never Alcohol Use Standard Drinks/Week Comments Not Currently 0 (1 standard drink = 0.6 oz pur e alcohol) oca Depression Answer Date Recorded Patient Health Questionnaire-9 Score 23 03/16/2023 Housing Stability Answer Date Recorded What is your housing situation today? I have [employer] 08/10/[address] you [...] EDT Tc from pt mother requesting a ticket marker .Informs pt was seen at [facility] [place] . Please call to clarify . documented in this encounter Plan of Treatment Not on file documented as of this encounter Visit Diagnoses Not on filedocumented in this encounter Additional Health Concerns Assessment Noted Time PHQ-9 Depression Total Score: 23 023 10:58 AM EDT documented as of this encounter Care Teams Restaurant Area Manager Relationship Specialty Start Date End Date Dulce Turner MD [address] [place] [id number] PCP - General Family Medicine 10/29/21 Deirdre Mari [address] [place] [address] Gynecology 10/08/24 Chandler Montez PMHNP [facility] [address] Nurse Practitioner Psychiatry 02/13/25 Rickie AQUINO Psychology 02/13/25 documented as of this encounter
--- OUTSIDE RECORDS SUMMARY | 2025-07-31 12:06 | XMS_ITS | Clinical Summary ---
Author Organization [employer] Address [address] [facility] [address] [place] [address] Care Team Providers Care Forensic Pathologist Name Role Phone Dulce Turner MD Primary Care Provider [phone] Deirdre Mari Unavailable [phone] Chandler Montez PMHNP Unavailable Unavailable Allergies No known active allergies Medications * This document contains information received from the source organization and may not represent a complete record from that organization. triamcinolone (Kenalog) 0.1 % creamIndication s:Eczema, unspecified type Apply topically if needed in the morning and at bedtime (pain and swelling). 30 g 2 Active naloxone (Narcan) 0.4 MG/ML injectionIndica tions:Marijuana use Inject 5 mL (2 mg) into the muscle if needed for opioid reversal. 1 mL 025 2025 Active escitalopram (Lexapro) 10 MG tabletIndicatio ns:Moderate episode of recurrent major depressive disorder (CMS/HCC) (HCC),Anxiety disorder, unspecified type Take 1 tablet (10 mg) by mouth Once per day. 30 tablet 2 025 2025 Active albuterol (2.5 MG/3ML) 0.083% nebulizer solutionIndicat ions:Mild persistent asthma without complication Take 3 mL (2.5 mg) by nebulization every 6 (six) hours if needed for wheezing or shortness of breath. 75 mL 1 025 2025 Active ibuprofen 400 MG tabletIndicatio ns:Pain Take 1.5 tablets (600 mg) by mouth every 8 (eight) hours if needed for moderate pain. 30 tablet Active desogestrel-eth inyl estradiol (Isibloom) 0.15-30 MG-MCG tabletIndicatio ns:Polycystic ovary syndrome Take 1 tablet by mouth Once per day. 28 tablet 3 Active albuterol 108 (90 Base) MCG/ACT inhalerIndicati ons:Mild persistent asthma without complication Inhale 2 puffs every 4 (four) hours if needed for wheezing or shortness of breath. 18 g 2 025 2024 Active desogestrel-eth inyl estradiol (Isibloom) 0.15-30 MG-MCG tabletIndicatio ns:Polycystic ovary syndrome Take 1 tablet by mouth Once per day. 28 tablet 3 024 2024 Discontinued(R eorder (will not trigger notification to Pharmacy)) albuterol 108 (90 Base) MCG/ACT inhalerIndicati ons:Mild persistent asthma without complication Inhale 2 puffs every 4 (four) hours if needed for wheezing or shortness of breath. 18 g 2 025 2024 Discontinued(R eorder (will not trigger notification to Pharmacy)) albuterol (2.5 MG/3ML) 0.083% nebulizer solution Take 3 mL (2.5 mg) by nebulization every 6 (six) hours if needed for wheezing or shortness of breath. 75 mL 1 025 2024 Discontinued(R eorder (will not trigger notification to Pharmacy)) ibuprofen 400 MG tablet TAKE 1 TABLET(400 MG) BY MOUTH EVERY 6 HOURS FOR UP TO 30 DOSES NEEDED FOR MODERATE PAIN OR FEVER 30 tablet 025 2024 Discontinued(R eorder (will not trigger notification to Pharmacy)) Tirzepatide-Zeus ght Management (Zepbound) 7.5 MG/0.5ML solution auto-injectorIn dications:Sever e episode of recurrent major depressive disorder, without psychotic features (CMS/HCC) ([facility]) Inject 0.5 mL (7.5 mg) under the skin 1 (one) time per week. 2 mL 02/13/2 025 2024 Discontinued diphenhydrAMINE (BENADryl) 2 % creamIndication s:Skin irritation Apply topically if needed in the morning, at noon, and at bedtime for itching. Apply pea sized amount to skin injection site 1 hour before injection and repeat 1 hour after. Then bid prn if itching and redness continues. 15 g 2 025 2024 Discontinued escitalopram (Lexapro) 5 MG tabletIndicatio ns:Mild episode of recurrent major depressive disorder (CMS/HCC) TAKE 1 TABLET BY MOUTH EVERY DAY 30 tablet 1 025 2024 Discontinued Active Problems Problem Noted Date Diagnosed Date Exercise counseling 02/13/2025 Assessment & Plan (02/13/2025 3:28 PM EDT): Exercise Recommendations: At least 150 minutes of moderate-intensity physical activity per week, or an equivalent combination of moderate- and vigorous-intensity activity. Marijuana use 12/26/2024 Overview (12/26/2024): No interest in cessation at this time. Prescribed Narcan 12/26/24. Assessment & Plan (12/26/2024 2:12 PM EDT): No interest in cessation at this time. Prescribed Narcan 12/26/24. Viral upper respiratory infection 11/06/2024 Assessment & Plan (11/06/2024 1:52 PM EST): Cough x >2 weeks. No post-tussive emesis. Has been prescribed ibuprofen, prednisone and albuterol. No abx use recently. No evidence of dehydration. -will prescribe azithromycin (Zithromax) 250 MG. 11/06/24 -ordered Respiratory Viral Panel PCR 11/06/24, will call if positive. -Supportive care advised. -Isolation recommendations discussed. Transaminitis 10/22/2024 Overview (02/13/2025): Lab Results Component Value Date AST 36 [...] bed Other specified health status 08/11/2023 Overview (07/31/2025): -next comprehensive annual evaluation due after 07/31/26 -eye care facilitated by [place] -dental home is [facility] care proxy filed 08/24/24 Assessment & Plan (07/31/2025 10:20 AM EDT): -next comprehensive annual evaluation due after 07/31/26 -eye care facilitated by [place] -dental [place] [facility] care proxy filed 08/24/24 Assessment & Plan (08/02/2024 10:56 AM EDT): -next comprehensive annual evaluation due after 08/11/2024 -eye care facilitated by [place] -dental home is [facility] -[place] care proxy Assessment & Plan (08/11/2023 10:45 AM [...] to review results Vitamin D deficiency 07/04/2023 Assessment & Plan (07/31/2025 10:20 AM EDT): Orders: Vitamin D, 25-Hydroxy, Total, Immunoassay; Future Morbid obesity (CMS/HCC) 07/04/2023 Overview (07/31/2025): - Baseline Weight: 339 lbs 10/22/24 BMI Readings from Last 3 Encounters: 07/31/25 50.10 kg/m 03/04/25 50.68 kg/m 02/13/25 51.84 kg/m Wt Readings from Last 3 Encounters: 07/31/25 315 lb 2 oz (143 kg) 03/04/25 314 lb (142 kg) 02/13/25 321 lb 3.2 oz (146 kg) Has had improvement in secondary outcomes with weight loss medication use. -Zepbound (tirzepatide) weight loss injections started 08/22/2024. He lost about 29 lbs (8% of body weight) and self discontinue 06/2015 due to injection site reaction, nausea and concerns about possible pancreatic side effects. Dietary Recommendations: Fruits, vegetables, whole grains, protein foods, and fat-free or low-fat dairy products are healthy choices. Eat different types of protein foods in your diet. This can include seafood, lean meats, poultry, beans, peas, lentils, nuts, seeds, soy products, and eggs. Limit foods and beverages higher in added sugars, saturated fat, and sodium. Exercise Recommendations: At least 150 minutes of moderate-intensity physical activity per week, or an equivalent combination of moderate- and vigorous-intensity activity Assessment & Plan (07/31/2025 10:20 AM EDT): - Baseline Weight: 339 lbs 10/22/24 BMI Readings from Last 3 Encounters: 07/31/25 50.10 kg/m 03/04/25 50.68 kg/m 02/13/25 51.84 kg/m Wt Readings from Last 3 Encounters: 07/31/25 315 lb 2 oz (143 kg) 03/04/25 314 lb (142 kg) 02/13/25 321 lb 3.2 oz (146 kg) Has had improvement in secondary outcomes with weight loss medication use. -Zepbound (tirzepatide) weight loss injections started 08/22/2024. He lost about 29 lbs (8% of body weight) and self discontinue 06/2015 due to injection site reaction, nausea and concerns about possible pancreatic side effects. Dietary Recommendations: Fruits, vegetables, whole grains, protein foods, and fat-free or low-fat dairy products are healthy choices. Eat different types of protein foods in your diet. This can include seafood, lean meats, poultry, beans, peas, lentils, nuts, seeds, soy products, and eggs. Limit foods and beverages higher in added sugars, saturated fat, and sodium. Exercise Recommendations: At least 150 minutes of moderate-intensity physical activity per week, or an equivalent combination of moderate- and vigorous-intensity activity Orders: Hepatic Function Panel; Future Lipid Panel, Standard; Future TSH with Reflex to Free T4; Future Hemoglobin A1c; Future Assessment & Plan (02/13/2025 3:36 PM EDT): - Baseline Weight: 339 lbs 10/22/24 Here today for follow-up/weight check. Tolerating zepbound (tirzepatide) well, denies side effects. BMI Readings from Last 3 Encounters: 02/13/25 51.84 kg/m 12/26/24 53.10 kg/m 11/06/24 55.52 kg/m Wt Readings from Last 3 Encounters: 02/13/25 321 lb 3.2 oz (146 kg) 12/26/24 329 lb (149 kg) 11/06/24 344 lb (156 kg) Has had improvement in secondary outcomes with weight loss medication use. Understands that weight loss medications must be used as part of a comprehensive lifestyle plan that incorporates daily exercise, adequate protein intake, decreased soda and sugary beverage consumption, decreased caloric intake. -given BMI >30kg/m2 (52.95 08/22/24) and weight [...] a week for a week started 10/22/24 -Zepbound increased to 5mg Im weekly 12/25/24 -Zepbound increased to 7.5mg Im weekly 02/13/25 Assessment & Plan (12/26/2024 2:11 PM EDT): - Baseline Weight: 339 lbs 10/22/24 -given BMI >30kg/m2 (52.95 08/22/24) and weight [...] a week for a week started 10/22/24 -Zepbound increased to 5mg Im weekly 12/25/24 -Start 2.5mg subcutaneously q week x 1 month, then 5mg subcutaneously q week. May increased by 2.5mg q 4 weeks with max 15mg/wk Assessment & Plan (10/22/2024 11:00 AM EST): [...] diet and exercise,discussed healthy life style -discussed engineering equipment operator referral -referred today Hyperinsulinism 07/04/2023 Allergic rhinitis 07/04/2023 Anxiety disorder, unspecified 03/16/2023 Overview (07/31/2025): -reports though the roof d ,denies suicidial or homacidial ideation -mom requesting FMLA due to uncontrolled symptoms . I agree as long as she is presuing treatment via behavioral health -no longer seeing therapist, agrees to behavior health referral 07/31/25 -increase Lexapro from 5mg to 10mg 07/31/25 -return in 3 months Assessment & Plan (07/31/2025 10:20 AM EDT): -reports though the roof d ,denies suicidial [...] TSH with Reflex to Free T4; Future Assessment & Plan (08/22/2024 6:10 PM EST): -Still has some anxiety around people she doesn't know -Continue with Lexipro Episode of recurrent major depressive disorder 0 03/16/2023 Overview (07/31/2025): -reports though the roof d ,denies suicidial or homacidial ideation -mom requesting FMLA due to uncontrolled symptoms . I agree as long as she is presuing treatment via behavioral health -no longer seeing therapist, agrees to behavior health referral 07/31/25 -increase Lexapro from 5mg to 10mg 07/31/25 -return in 3 months Assessment & Plan (07/31/2025 10:20 AM EDT): -reports though the roof d ,denies suicidial [...] (10 mg) by mouth Once per day. Assessment & Plan (02/13/2025 3:37 PM EDT): Follows with therapist at [facility]. Will be established with psychiatrist soon. -is prescribed Escitalopram(Lexapro) once, daily that she uses PRN. - Prescribed escitalopram (Lexapro) 5 MG tablet 10/22/24 - referred to psychiatrist and [facility] saw today in clinic 12/26/24 - follows with psychiatrist, Chandler Montez. Assessment & Plan (12/26/2024 2:12 PM EDT): Follows with therapist at [facility]. Will be established with psychiatrist soon. -is prescribed Escitalopram(Lexapro) once, daily that she uses PRN. - Prescribed escitalopram (Lexapro) 5 MG tablet 10/22/24 - referred to psychiatrist and [facility] saw today in clinic 12/26/24 Assessment & Plan (10/22/2024 11:02 AM EST): Follows with therapist at [facility]. Will be established with [...] Patient will benefit from crisis evaluation with [facility]. At this time Martine Kumari meets criteria for Visit Diagnoses: Problem List Items Addressed This Visit Other MDD (major depressive disorder) Anxiety disorder, unspecified Patient ready to address current needs Yes Strengths include supportive family and openness to interventions PLAN: Follow up with [facility]: Recommended for follow-up: 04/06/23 at 11:30 Patient goal is crisis evaluation with [facility] Recommendations Crisis evaluation Assessment & Plan (10/08/2024 8:09 AM EST): >>ASSESSMENT AND PLAN FOR MDD (MAJOR DEPRESSIVE DISORDER) WRITTEN ON 08/22/2024 6:06 PM BY CHUCHO ROBLES MA -Depression symptoms improved with continuous use of Lexipro -Will refill medication before the winter time Assessment & Plan (08/02/2024 11:04 AM EDT): Follows with therapist at [facility]. Will be established with psychiatrist soon. -is prescribed Escitalopram(Lexapro) once, daily that she uses PRN. Polycystic ovary syndrome 07/22/2021 Overview (08/02/2024): Currently on Isibloom OCP. -Has f/u appt with [facility] in Aug 2024. Assessment & Plan (07/31/2025 10:20 AM EDT): Orders: desogestrel-ethinyl estradiol (Isibloom) 0.15-30 MG-MCG tablet; Take 1 tablet by mouth Once per day. Assessment & Plan (08/22/2024 6:02 PM EST): Currently on Isibloom OCP. -Has f/u appt with [facility] in Aug 2024. Assessment & Plan (08/02/2024 10:58 AM EDT): Currently on Isibloom OCP. -Has f/u appt with [facility] in Aug 2024. Mild persistent asthma without complication 03/2021 Overview (07/31/2025): - followed by rehabilitation coordinator Dr. Fermin, until 2021 - denies regular use for albuterol - new pulmonology referral placed 07/31/25 Assessment & Plan (07/31/2025 10:20 AM EDT): - followed by rehabilitation coordinator Dr. Fermin, until 2021 - denies regular use for albuterol - new pulmonology referral placed 07/31/25 Orders: albuterol (2.5 MG/3ML) 0.083% nebulizer solution; Take 3 mL (2.5 mg) by nebulization every 6 (six) hours if needed for wheezing or shortness of breath. albuterol 108 (90 Base) MCG/ACT inhaler; Inhale 2 puffs every 4 (four) hours if needed for wheezing or shortness of breath. Referral to Pulmonology; Future Assessment & Plan (10/22/2024 11:04 AM EST): -followed by rehabilitation coordinator Dr. Fermin, last note 2021 Denies regular use. Well-controlled. Denies refills 08/02/24 - Prescribed albuterol 108 (90 Base) MCG/ACT inhaler 10/22/24 Assessment & Plan (08/22/2024 5:55 PM EST): -followed by rehabilitation coordinator Dr. Fermin, last note 2021 Denies regular use. Well-controlled. Denies refills 08/02/24 Assessment & Plan (08/02/2024 10:59 AM EDT): -followed by rehabilitation coordinator Dr. Fermin, last note 2021 Denies regular use. Well-controlled. Denies refills 08/02/24 Resolved Problems Problem Noted Date Diagnosed Date Resolved Date Dietary counseling 02/13/2025 Assessment & Plan (02/13/2025 3:28 PM EDT): Dietary Recommendations: Fruits, vegetables, whole grains, protein foods, and fat-free or low-fat dairy products are healthy choices. Eat different types of protein foods in your diet. This can include seafood, lean meats, poultry, beans, peas, lentils, nuts, seeds, soy products, and eggs. Limit foods and beverages higher in added sugars, saturated fat, and sodium. Daytime somnolence 11/06/2024 Assessment & Plan (11/06/2024 [...] the day, referred to Sleep Medicine 11/06/24. Physical exam 08/11/2023 08/23/2023 Overview (08/11/2023): -Normal [...] cx done to r/o azole resistance and cyber incident handler eval ,also to consdier erythrasma emperic tx if not improved by then -alarm signs and symptoms discussed Polycystic ovaries 07/04/2023 Encounters * This document contains information received from the source organization and may not represent a complete record from that organization. Date Type Department Care Team Description 07/31/2025 9:30 AM EDT Office Visit [facility] [address] [place] [phone] Dulce Turner MD Anxiety disorder, unspecified type (Primary Dx); Moderate episode of recurrent major depressive disorder (CMS/HCC) (HCC); Morbid obesity (CMS/HCC) (HCC); Polycystic ovary syndrome; Mild persistent asthma without complication; Pain; Vitamin D deficiency; Encounter for immunization; Other specified health status 07/31/2025 Travel 07/30/2025 Travel 07/30/2025 Telephone [facility] [address] [place] [phone] Dulce Turner MD chart prep 06/20/2025 Refill [facility] [address] [place] [phone] Dulce Turner MD Mild episode of recurrent major depressive disorder ([facility]) 05/10/2025 Telephone [facility] [address] [place] [address] Dulce Turner MD chartprep from Last 3 Months Immunizations Immunization Administration Dates Next Due DTaP 09/27/2003, 1,01/18/2000,11/18,1999 HPV, Quadrivalent 03/14/2009,11/14/2008,09/06/20 08 Hep B, Adolescent or Pediatric 07/07/2000,1999,01/18/2000 Hep B, adult 10/21/2022 HiB, unspecified 10/06/2000, 0,1999,08/28 IPV 09/27/2003, 1,1999,08/28 Influenza Injectable Quadriv alant Preservative Free IIV4 MDCK 07/13/2023,10/12/2022 Influenza injectable quadriv alent preservative free 08/28/2021,07/18/2020,07/19/2018,07/09,07/12/2014 Influenza, IIV3, injectable 08/08/2019, 7,07/14/2016 Influenza, Unspecified 07/20/2013 Influenza, seasonal, injecta ble, preservative free 07/31/2025,08/22/2024 MMR 09/27/2003,10/06/2000 Meningococcal MCV4P [id number] 12/10/2014,12/06/19 12 Novel [id number] 07/02/2011 Pfizer Covid-19 Vaccine 12+ 08/22/2024 Pfizer [...] 19 07/31/2025 9:36 AM EDT Oxygen Saturation 99% 03/04/2025 8:49 AM EDT Inhaled Oxygen Concentration - - Weight 143 kg (315 lb 2 oz) 07/31/2025 9:36 AM E DT Height 168.9 cm (5' 6.5 ) 07/31/2025 9:36 AM EDT Body Mass Index 50.1 07/31/2025 9:36 AM EDT Plan of Treatment Health Maintenance Due Date Last Done Comments Alcohol/Substance Use Screening 08/22/2025 08/22/2024 Disability Screening 11/06/2025 11/06/2024 SDOH Screening 12/14/2025 12/14/2024 Depression Screening 02/13/2026 02/13/2025, 02/14/20 25 Family Planning (PISQ) 07/31/2026 07/31/2025 Tobacco Screening 07/31/2026 07/31/2025 Pap Smear 08/12/2026 08/12/2023, 10/03/2020 Lipid Panel [...] Completed 08/22/2024, , 10/21/2022, Additional history exists Pneumococcal Vaccine: Pediatrics (0 to 5 Years) and At-Risk Patients (6 to 49) Years Completed 08/22/2024, 10/24/2012, 03/22/2001, Additional history exists Influenza Vaccine Completed 07/31/2025, , 07/13/2023, Additional history exists Hepatitis A Vaccines Aged [...] Routine 07/31/2025 10:20 AM EDT Morbid obesity (CMS/HCC) (HCC) HIV 1/2 ANTIGEN/ANTIBODY, FOURTH GENERATION W/RFL Routine 08/15/2024 9:48 AM EDT Routine screening for STI (sexually transmitted infection) LIPID PANEL, STANDARD Routine 08/15/2024 9:48 AM EDT Polycystic ovary syndrome PAP SMEAR Routine 08/12/2023 HEPATITIS C AB W/REFL TO HCV RNA, QN, PCR Routine 08/11/2023 11:19 AM EDT Routine screening for STI (sexually transmitted infection) from Last 3 Months or Most Recently Relevant to Health Maintenance Results * Hemoglobin A1c (07/31/2025 10:20 AM EDT) Hemoglobin A1c 5.3 <6.0 % [facility] Comment:Hemoglobin A1C Refer ence Range Adults: 4.8 - 6.0 % Non diabetic: < 6.0 % Goal: < 7.0 %Additional Action Suggested: > 8.0 %Note: Hemoglobin A1c results are invalid for patients with abnormal amounts of HbF. Blood transfusions may impact the HbA1c concentration in the patient sample. Estimated Average Glucose 105 mg/dL [facility] Comment:eAG = Estimated ave rage glucose which is %A1C expressed asaverage glucose, using the formula of the F5B-PihrogtFmrwqrf Glucose study (ADAG), Diabetes Care, Vol.31,#8,May. 2007 Blood Venous blood specimen / Unknown 07/31/2025 10:20 AM EDT 07/31/2025 11:14 AM EDT us Dulce Turner MD LAB BLOOD ORDERABLES Final Result [facility] [address] [place] [phone] * HIV-1/2 Antigen and Antibodies, Fourth Generation, with Reflexes (08/15/2024 9:48 AM EDT) HIV AB/AG Nonreactive Nonreactive [facility] Comment:HIV-1 p24 Ag and/or HIV-1/HIV-2 Ab not detected.A test result that is nonreactive does not exclude thepossibility of exposure to or infection with HIV-1 and/orHIV-2. Nonreactive results in this assay for individualswith prior exposure to HIV-1 and/or HIV-2 may be due toantigen and antibody levels that are below the limit ofdetection of this assay.The [employer] HIV Ag/Ab Combo assay result andsupplemental assay results should be interpreted inconjunction with the patient's clinical presentation,history and other laboratory results. If the results areinconsistent with clinical evidence, additional testing issuggested to confirm the result. Blood Venous blood specimen / Unknown 08/15/2024 9:48 AM EDT 08/15/2024 11:36 AM EDT Dulce Turner MD LAB BLOOD ORDERABLES Final Result Performing Organization Address [facility]/ZIP Co de Phone Number [facility] [address] [place] [phone] * Lipid Panel, Standard (08/15/2024 9:48 AM EDT) Triglycerides 86 <150 mg/dL [facility] Comment:Desirable Triglyceri de: less than 150 mg/dLBorderline High Triglyceride 150-199 mg/dLHigh Triglyceride: 200-499 mg/dLVery High Triglyceride: greater than or equal to 5OO mg/dL Cholesterol 132 <200 mg/dL [facility] Comment:Desirable Cholestero l: less than 200 mg/dLBorderline High Cholesterol: 200-239 mg/dLHigh Cholesterol: greater than 239 mg/dL LDL Cholesterol Calculated 73 <100 mg/dL [facility] Comment:Desirable LDL: less than 100 mg/dLNear Optimal/Above Optimal LDL: 110- 129 mg/dLBorderline High LDL: 130-159 mg/dLHigh LDL: 160-189 mg/dLVery High LDL: greater than or equal to 190 mg/dL HDL Cholesterol 42 >40 mg/dL [facility] Comment:Desirable HDL: great er than 40 mg/dL Note: This HDL assay may give artificially low results in patients with liver disease. Blood Venous blood specimen / Unknown 08/15/2024 9:48 AM EDT 08/15/2024 11:36 AM EDT Dulce Turner MD LAB BLOOD ORDERABLES Final Result Performing Organization Address City/[facility]/ZIP Co de Phone Number [facility] [address] [place] [phone] * Pap Smear (08/12/2023) Pap Smear 1. NILM 1. NILM Comment:Kathya Murrieta DO Swab 08/12/2023 Historical Provider LAB CYTOLOGY ORDERABLES F inal Result * Hepatitis C Antibody with Reflex to HCV, RNA, Quantitative, Real-Time PCR (08/11/2023 11:19 AM EDT) Hepatitis C Antibody Nonreactive Nonreactive [facility] Comment:Antibodies to HCV no t detected; does not exclude early acuteHCV infection. Blood Venous blood specimen / Unknown 08/11/2023 11:19 AM EDT 08/11/2023 12:59 PM EDT Dulce Turner MD LAB BLOOD ORDERABLES Final Result [facility] [address] [place] [phone] from Last 3 Months or Most Recently Relevant to Health Maintenance Insurance [facility] STANDARD Advance Directives Documents on File Type Date Recorded Patient Director [employer] Expl anation Advance Directives and Living Will 08/24/2024 12:01 PM Health Care Proxy Care Teams Forensic Pathologist Relationship Specialty Start Date End Date Dulce Turner MD [address] [place] [phone] PCP - General Family Medicine 10/29/21 Deirdre Mari [address] [place] [address] Gynecology 10/08/24 Chandler Montez PMHNP [address] [place] [address] Nurse Practitioner Psychiatry 02/13/25 Rickie AQUINO Psychology 02/13/25
--- OUTSIDE RECORDS SUMMARY | 2025-07-31 12:06 | XMS_ITS | Encounter Summary ---
Author Organization [employer] Address [address] [facility] [address] [place] [address] Care Team Providers Care Special Needs Child Caregiver Name Role Phone Dulce Turner MD Primary Care Provider [phone] Deirdre Mari Unavailable [phone] Chandler Montez PMHNP Unavailable Unavailable Reason for Visit * Reason Onset Date Comments chart prep 07/30/2025 Encounter Details Date Type Department Care Team ([facility] st Contact Info) Description 07/30/2025 Telephone [facility] [address] [place], [place] [phone] Dulce Turner MD [address] [place], [place] [phone] chart prep Social History Tobacco Use Types Packs/Day Years [...] encounter Miscellaneous Notes * Telephone Encounter - Ayesha Haque [place] - 07/30/2025 10:27 AM EDT ..Chart Prep Labs: not applicable Images: not applicable Vaccines due: Flu Due Referrals: Not Applicable Screenings: LMP Overdue care gaps: None documented in this encounter Plan of Treatment Not on file documented as of this encounter Visit Diagnoses Not on filedocumented in this encounter Additional Health Concerns Assessment Noted Time PHQ-9 Depression Total Score: 8 02/14/20 25 11:41 AM EDT documented as of this encounter Care Teams Special Needs Child Caregiver Relationship Specialty Start Date End Date Dulce Turner MD [address] [place] [address] PCP - General Family Medicine 10/29/21 Deirdre Mari [address] Gynecology 10/08/24 Chandler Montez PMHNP [address] Nurse Practitioner Psychiatry 02/13/25 Rickie AQUINO Psychology 02/13/25 documented as of this encounter
--- OUTSIDE RECORDS SUMMARY | 2025-07-31 12:06 | XMS_ITS | Encounter Summary ---
Author Organization [employer] Address [address] [facility] [address] [place] [address] Care Team Providers Care Pump Servicer Supervisor Name Role Phone Dulce Turner MD Primary Care Provider [phone] Deirdre Mari Unavailable [phone] Chandler Montez PMHNP Unavailable Unavailable Encounter Details Date Type Department Care Team (Latest Contact Info) Description 07/31/2025 Travel Social History Tobacco Use Types Packs/Day [...] documented as of this encounter Care Teams Pump Servicer Supervisor Relationship Specialty Start Date End Date Dulce Turner MD [address] [place] [id number] PCP - General Family Medicine 10/29/21 Deirdre Mari [address] [place] [address] Gynecology 10/08/24 Chandler Montez PMHNP [address] [place] [address] Nurse Practitioner Psychiatry 02/13/25 Rickie AQUINO Psychology 02/13/25 documented as of this encounter
--- OUTSIDE RECORDS SUMMARY | 2025-07-31 12:06 | XMS_ITS | Encounter Summary ---
Author Organization [employer] Address [address] [facility] [address] [place] [address] Care Team Providers Care Interlibrary Loan Services Librarian Name Role Phone Dulce Turner MD Primary Care Provider [phone] Deirdre Mari Unavailable [phone] Chandler Montez PMHNP Unavailable Unavailable Encounter Details Date Type Department Care Team (Latest Contact Info) Description 07/30/2025 Travel Social History Tobacco Use Types Packs/Day [...] documented as of this encounter Care Teams Interlibrary Loan Services Librarian Relationship Specialty Start Date End Date Dulce Turner MD [address] [place] [id number] PCP - General Family Medicine 10/29/21 Deirdre Mari [address] [place] [address] Gynecology 10/08/24 Chandler Montez PMHNP [address] [place] [address] Nurse Practitioner Psychiatry 02/13/25 Rickie AQUINO Psychology 02/13/25 documented as of this encounter
[2025-07-31 12:11] LABS: Alanine Aminotransferase 17 U/L (0-31); Albumin Level 3.8 g/dL (3.5-5.0); Alkaline Phosphatase 63 U/L (39-117); Aspartate Amino Transferase 22 U/L (5-31); Cholesterol 102 mg/dL (<200); HDL Cholesterol 37 mg/dL (>40); Total Protein 6.7 g/dL (6.5-8.0); Triglycerides 102 mg/dL (<150)
== END 2025-07-31 10:14 | disposition home or self-care (01) ==
LOC: HO.HHCL 10:13
PROVIDERS: PCP Family Medicine; Visit Provider Family Medicine
DX: E66.01 Morbid (severe) obesity due to excess calories (principal); F41.9 Anxiety disorder, unspecified; E55.9 Vitamin D deficiency, unspecified
CPT/HCPCS: 36415; 80061; 80076; 82306; 83036; 84443